=== PATIENT | female | born 1945 | race African-American/Black ===

== ENCOUNTER 2016-07-29 10:40 | Observation (INO) | payer OTHER ==
[2016-07-29 10:48] VITALS: BMI 24.2
--- NOTE | 2016-07-29 11:22 | PDOC ---
History of Present Illness - General History Source: Patient Exam Limitations: No Limitations - History of Present Illness Initial Comments: 07/29/16 11:35 The patient is a 69 year old female, with a significant past medical history of CAD, [place] (1982), hypertension, and hyperlipidemia, who presents to the emergency department complaining of left arm pain for approximately 4 days. The patient reports her pain radiates into her left shoulder and left upper back. Patient reports her pain is constant and exacerbated with exertion. She denies any associated chest pain, shortness of breath, diaphoresis, palpitations, numbness , or tingling. The patient reports she recently moved from [place] and has not been able to follow-up with her PCP Dr. Holly. Patient admits she is not compliant with some of her medications, because she has run out of them. Patient denies any history of PE or DVT. The patient denies any recent travel or sick contacts Allergies: None reported. Past Surgical History: Hysterectomy Social History: Former smoker. Denies alcohol or drug use. PCP: Dr. Mayda Holly <Miriam Pride - Last Filed: 07/29/16 13:05> <Kirsten Kelley - Last Filed: 07/29/16 15:59> - General Chief Complaint: Pain Stated Complaint: LT ARM/NECK PAIN Time Seen by Provider: 07/29/16 10:54 Past History <Miriam Pride - Last Filed: 07/29/16 13:05> - Past Medical History HTN: Yes - Psycho/Social/Smoking Cessation Hx Suicidal Ideation: No Smoking History: Former smoker Have you smoked in the past 12 months: No Information on smoking cessation initiated: No <Kirsten Kelley - Last Filed: 07/29/16 15:59> - Past Medical History Allergies/Adverse Reactions: Allergies Allergy/AdvReac Type Severity Reaction Status Date / Time No Known Allergies Allergy Verified 07/29/16 10:42 Home Medications: Ambulatory Orders Aspirin [ASA -] 81 mg PO DAILY 07/29/16 Atorvastatin Ca [Lipitor] 40 mg PO HS 07/29/16 Furosemide [Lasix] 20 mg PO DAILY 07/29/16 Lisinopril/Hydrochlorothiazide [Lisinopril-Hctz 20-12.5 mg Tab] DAILY 07/29/16 Metoprolol Succinate [Toprol Xl -] 100 mg PO BID 07/29/16 Nifedipine ER [Procardia Xl -] 90 mg PO DAILY 07/29/16 Review of Systems - Review of Systems Able to Perform ROS?: Yes Comments:: 07/29/16 11:35 GENERAL/CONSTITUTIONAL: No fever or chills. No weakness. HEAD, EYES, EARS, NOSE AND THROAT: No change in vision. No ear pain or discharge. No sore throat. CARDIOVASCULAR: No chest pain or shortness of breath. RESPIRATORY: No cough, wheezing, or hemoptysis. GASTROINTESTINAL: No nausea, vomiting, diarrhea or constipation. GENITOURINARY: No dysuria, frequency, or change in urination. MUSCULOSKELETAL: Yes: left arm/shoulder/upper back pain. No other joint or muscle swelling or pain. No neck pain. SKIN: No rash NEUROLOGIC: No headache, vertigo, loss of consciousness, or change in strength/ sensation. ENDOCRINE: No increased thirst. No abnormal weight change. HEMATOLOGIC/LYMPHATIC: No anemia, easy bleeding, or history of blood clots. ALLERGIC/IMMUNOLOGIC: No hives or skin allergy. <Miriam Pride - Last Filed: 07/29/16 13:05> *Physical Exam - Vital Signs Last Vital Signs Temp Pulse Resp BP Pulse Ox 98.3 F 71 19 199/94 96 07/29/16 10:42 07/29/16 10:42 07/29/16 10:42 07/29/16 10:42 07/29/16 10:42 - Physical Exam Comments: 07/29/16 11:36 GENERAL: Awake, alert, and fully oriented, in no acute distress HEAD: No signs of trauma EYES: PERRLA, EOMI, sclera anicteric, conjunctiva clear ENT: Auricles normal inspection, hearing grossly normal, nares patent. Moist mucosa NECK: Normal ROM, supple, no lymphadenopathy, JVD, or masses LUNGS: Breath sounds equal, clear to auscultation bilaterally. No wheezes, and no crackles HEART: Regular rate and rhythm, normal S1 and S2, no murmurs, rubs or gallops ABDOMEN: Soft, nontender, normoactive bowel sounds. No guarding, no rebound. No masses EXTREMITIES: Bilateral lower extremity nonpitting edema. Normal range of motion. No clubbing or cyanosis. No cords, erythema, or tenderness. DP/PT pulses 2+ and symmetric. NEUROLOGICAL: Moves all extremities. Normal speech, normal gait SKIN: Warm, Dry, normal turgor, no rashes or lesions noted. <Miriam Pride - Last Filed: 07/29/16 13:05> - Vital Signs Last Vital Signs Temp Pulse Resp BP Pulse Ox 98.3 F 71 19 199/94 96 07/29/16 10:42 07/29/16 10:42 07/29/16 10:42 07/29/16 10:42 07/29/16 10:42 <Kirsten Kelley - Last Filed: 07/29/16 15:59> Heart Score/ECG Review - ECG Intrepretation Rhythm: Regular Rhythm Comment:: 07/29/16 12:01 65 bpm, no st elevation or depressionl. . no cmparison - ECG Impressions Normal ECG: Yes Non-specific ST Elevation: No Ischemic Changes: No Bradycardia: Yes (repeat ekg sinus bradycardia 54, no st elevation or depression.) <Kirsten Kelley - Last Filed: 07/29/16 15:59> ED Treatment Course - LABORATORY CBC & Chemistry Diagram: 07/29/16 12:15 07/29/16 12:15 - RADIOLOGY Radiograph Interpretation: 07/29/16 13:05 EXAM: CXR INTERPRETED BY: Dr. Woodard REVIEWED BY: Dr. Kelley IMPRESSION: No acute pathology <Miriam Pride - Last Filed: 07/29/16 13:05> - LABORATORY CBC & Chemistry Diagram: 07/29/16 12:15 07/29/16 12:15 <Kirsten Kelley - Last Filed: 07/29/16 15:59> Medical Decision Making - Medical Decision Making 07/29/16 11:14 69 yo F with h/o HTN HLD, CAD prior [place], no stents here with /co left shoulder arm pain. no mod factors, occ worse with light activity. no assoc sob n/v mild bilat leg swelling. ran out of meds two weeks ago, states hasn't been able to see for refill to having just moved to [place], too far. no f/c no other complaints. no h/o pe or dvt. no numnbess or tinling no . on exam normal RRR no m//r/g. lungs clear. abd soft nontender old hysterectomy scar. ext mild nonpitting edema. 2+ symmetric pulses ext. MDM differential msk pin, shoulder arthritis, infection, atypical angina. plan ekg cxr labs trop aspirin already taken today. brody admit for cardiac rule out. 07/29/16 11:28 69 07/29/16 14:23 d/w Matilde, will admit to observation for cardiac rule out. tried to call pt pcp dr. Chris Whitlock, Data [phone] office closed untiol august 01. admit to obs dr. Harris <Kirsten Kelley - Last Filed: 07/29/16 15:59> *DC/Admit/Observation/Transfer - Attestations Scribe Attestion: 07/29/16 11:36 Documentation prepared by Miriam Pride, acting as medical photographer for Kirsten Kelley MD. <Miriam Pride - Last Filed: 07/29/16 13:05> - Discharge Dispostion Admit: Yes <Kirsten Kelley - Last Filed: 07/29/16 15:59> Diagnosis at time of Disposition: Atypical angina - Referrals
[2016-07-29] MEDS ORDERED: ASPIRIN 81 MG CHEWABLE TABLETS PO ONE (11:29)
[2016-07-29] MEDS ORDERED: ASPIRIN 81 MG CHEWABLE TABLETS ONE (12:06)
[2016-07-29 12:27] LABS: BASOPHIL 1.5 % (0-2.0); EOSINOPHIL 1.5 % (0-4.5); MCHC 32.9 g/dl (32.0-36.0); MEAN CELL VOLUME 94.4 fl (80-96); MEAN PLT VOLUME 10.7 fl (7.5-11.1); NEUTROPHILS 60.3 % (42.8-82.8); PLATELET COUNT 175 K/MM3 (134-434); RDW 12.8 % (11.6-15.6); WHITE BLOOD COUNT 8.1 K/mm3 (4.0-10.0)
[2016-07-29 12:39] LABS: INR 1.13 (0.82-1.09); PROTHROMBIN TIME (PATIENT) 12.5 SEC (9.98-11.88)
[2016-07-29 13:21] LABS: ANION GAP 7 (8-16); BILIRUBIN,TOTAL 0.4 mg/dL (0.2-1.0); CALCIUM 9.5 mg/dL (8.5-10.1); CO2 34 mmol/L (21-32); GLUCOSE,RANDOM 96 mg/dL (74-106); MAGNESIUM 2.3 mg/dL (1.8-2.4); SGOT/AST 12 U/L (15-37); SGPT/ALT 16 U/L (12-78)
[2016-07-29 13:24] LABS: ALK PHOS 163 U/L (45-117); TROPONIN I < 0.02 ng/ml (0.00-0.05)
--- NOTE | 2016-07-29 14:17 | HP ---
CHIEF COMPLAINT: PCP: HISTORY OF PRESENT ILLNESS: The patient is a 69 year old female, with a significant past medical history of CAD, [place] (1982), hypertension, and hyperlipidemia, who presents to the emergency department complaining of left arm pain for approximately 4 days. The patient reports her pain radiates into her left shoulder and left upper back. Patient reports her pain is constant and exacerbated with exertion. She denies any associated chest pain, shortness of breath, diaphoresis, palpitations, numbness , or tingling. The patient reports she recently moved from [place] and has not been able to follow-up with her PCP Dr. Holly. Patient admits she is not compliant with some of her medications, because she has run out of them. Patient denies any history of PE or DVT. The patient denies any recent travel or sick contacts Allergies: None reported. Past Surgical History: Hysterectomy Social History: Former smoker. Denies alcohol or drug use. PCP: Dr. Mayda Holly Recent Travel: Social History: Smoking: former Alcohol: denies Drugs: denes Family History: Allergies No Known Allergies Allergy (Verified 07/29/16 10:42) HOME MEDICATIONS: REVIEW OF SYSTEMS CONSTITUTIONAL: Absent: fever, chills, diaphoresis, generalized weakness, malaise, loss of appetite, weight change HEENT: Absent: rhinorrhea, nasal congestion, throat pain, throat swelling, difficulty swallowing, mouth swelling, ear pain, eye pain, visual changes CARDIOVASCULAR: Absent: chest pain, syncope, palpitations, irregular heart rate, lightheadedness , peripheral edema RESPIRATORY: Absent: cough, shortness of breath, dyspnea with exertion, orthopnea, wheezing, stridor, hemoptysis GASTROINTESTINAL: Absent: abdominal pain, abdominal distension, nausea, vomiting, diarrhea, constipation, melena, hematochezia GENITOURINARY: Absent: dysuria, frequency, urgency, hesitancy, hematuria, flank pain, genital pain MUSCULOSKELETAL: Absent: myalgia, arthralgia, joint swelling, back pain, neck pain SKIN: Absent: rash, itching, pallor HEMATOLOGIC/IMMUNOLOGIC: Absent: easy bleeding, easy bruising, lymphadenopathy, frequent infections ENDOCRINE: Absent: unexplained weight gain, unexplained weight loss, heat intolerance, cold intolerance NEUROLOGIC: Absent: headache, focal weakness or paresthesias, dizziness, unsteady gait, seizure, mental status changes, bladder or bowel incontinence PSYCHIATRIC: Absent: anxiety, depression, suicidal or homicidal ideation, hallucinations. PHYSICAL EXAMINATION Vital Signs - 24 hr 07/29/16 10:42 Temperature 98.3 F Pulse Rate 71 Respiratory 19 Rate Blood Pressure 199/94 O2 Sat by Pulse 96 Oximetry (%) GENERAL: Awake, alert, and fully oriented, in no acute distress. HEAD: Normal with no signs of trauma. EYES: Pupils equal, round and reactive to light, extraocular movements intact, sclera anicteric, conjunctiva clear. No lid lag. EARS, NOSE, THROAT: Ears normal, nares patent, oropharynx clear without exudates. Moist mucous membranes. NECK: Normal range of motion, supple without lymphadenopathy, JVD, or masses. LUNGS: Breath sounds equal, clear to auscultation bilaterally. No wheezes, and no crackles. No accessory muscle use. HEART: Regular rate and rhythm, normal S1 and S2 without murmur, rub or gallop. ABDOMEN: Soft, nontender, not distended, normoactive bowel sounds, no guarding, no rebound, no masses. No hepatomegaly or splenomegaly. MUSCULOSKELETAL: Normal range of motion at all joints. No bony deformities or tenderness. No CVA tenderness. UPPER EXTREMITIES: 2+ pulses, warm, well-perfused. No cyanosis. No clubbing. No peripheral edema. LOWER EXTREMITIES: 2+ pulses, warm, well-perfused. No calf tenderness. No peripheral edema. NEUROLOGICAL: Cranial nerves II-XII intact. Normal speech. Normal gait. PSYCHIATRIC: Cooperative. Good eye contact. Appropriate mood and affect. SKIN: Warm, dry, normal turgor, no rashes or lesions noted, normal capillary refill. Laboratory Results - last 24 hr 07/29/16 07/29/16 07/29/16 12:15 12:15 12:15 WBC 8.1 RBC 4.31 Hgb 13.4 Hct 40.7 MCV 94.4 MCHC 32.9 RDW 12.8 Plt Count 175 MPV 10.7 Neutrophils % 60.3 Lymphocytes % 30.1 Monocytes % 6.6 Eosinophils % 1.5 Basophils % 1.5 INR 1.13 Sodium 144 Potassium 3.6 Chloride 103 Carbon Dioxide 34 H Anion Gap 7 L BUN 23 H Creatinine 1.0 Creat Clearance w eGFR 54.66 Random Glucose 96 Calcium 9.5 Magnesium 2.3 Total Bilirubin 0.4 AST 12 L ALT 16 Alkaline Phosphatase 163 H Creatine Kinase 64 Troponin I < 0.02 Total Protein 8.0 Albumin 4.0 ASSESSMENT/PLAN: This 69 yr old female with c/o left shoulder to back pain that began several days ago. She has been off her meds for several weeks and now developed ? chest pain vs shoulder pain. 1. Left shoulder pain and radiating to left side of back -CXR negative -Left shoulder xray ordered -tylenol ordered for pain 2. Chest pain? vs Shoulder pain? -first cardiac trops neg, 2 more sets ordered -Echo ordered -consult for cards placed -ED Dr. Kelley called pt PCP for information regarding meds however PCP away. -Pt denies any past cardiac work ups -son brought med list, ordered and started. -monitor blood pressure 3. HTN -restarted meds she's been off of for 2 weeks 4. HLD -restarted meds 5. Admit tele obs Visit type - Emergency Visit Emergency Visit: Yes Care time: The patient presented to the Emergency Department on the above date and was hospitalized for further evaluation of their emergent condition. - New Patient This patient is new to me today: Yes Date on this admission: 07/29/16 - Critical Care Critical Care patient: No Heart Score/ECG Review - History History: Moderately suspicious - Electrocardiogram EKG: Normal - Age Age: >/= 65 - Risk Factors Risk Factors Heart Score: Yes Hx Hypercholesterolemia, Yes Hx Hypertension Based on the list above the patient has:: >/=3 risk factors or Hx atherosclerotic disease - Troponin Troponin: </= normal limit - Score Heart Score - Total: 5
[2016-07-29] MEDS ORDERED: ACETAMINOPHEN 500 MG TABLET (FP) PO ONE (14:58)
[2016-07-29] MEDS ORDERED: PATIENT'S OWN MEDICATION (NON-FORMULARY) (Lisinopril/Hydrochlorothiazide [Lisinopril-Hctz PO SCH (15:00)
[2016-07-29] MEDS ORDERED: ACETAMINOPHEN 325 MG TABLET (FP) ONE (15:26)
[2016-07-29] MEDS ORDERED: FUROSEMIDE 40 MG TABLET (FP) ONE (15:26)
[2016-07-29] MEDS ORDERED: HYDROCHLOROTHIAZIDE 25 MG TABLET (FP) ONE (15:28)
[2016-07-29] MEDS ORDERED: LISINOPRIL 20 MG TABLET (FP) ONE (15:28)
[2016-07-29] MEDS: FUROSEMIDE 20 MG TABLET (FP) PO SCH (15:49)
[2016-07-29] MEDS: HYDROCHLOROTHIAZIDE 12.5 MG CAPSULE (FP) PO SCH (15:50)
[2016-07-29] MEDS: NIFEdipine E.R. 90 MG TABLET (FP) PO SCH (15:50)
[2016-07-29] MEDS: LISINOPRIL 20 MG TABLET (FP) PO SCH (15:50)
--- NOTE | 2016-07-29 16:26 | CON.CARD ---
Consult Consult Specialty:: Cardiology Referred by:: Hospitalist Medicine Reason for Consultation:: Hypertensive cardiomyopathy - History of Present Illness Chief Complaint: Left arm pain History of Present Illness: The patient is a 69 year old female, with a significant past medical history of CAD s/p [place], PTCA (1982), hypertension, and hyperlipidemia, who presented to the emergency department complaining of left arm pain for approximately 4 days exacerbated with certain positional changes and improving with Tylenol. She reports chronic dyspnea on exertion with climbing inclines over last several months, but denies any chest pain, palpitations, near or true syncope, orthopnea , PND or LE edema. Patient ran out of medications 2 weeks ago, BP elevated in ED. Allergies: None reported. Past Surgical History: Hysterectomy Social History: Former smoker. Denies alcohol or drug use. PCP: Dr. Mayda Holly - History Source History Provided By: Patient Limitations to Obtaining History: No Limitations - Past Medical History Cardio/Vascular: Yes: CAD, HTN, [place] - Smoking History Smoking history: Former smoker Have you smoked in the past 12 months: No Home Medications - Allergies Allergies/Adverse Reactions: Allergies Allergy/AdvReac Type Severity Reaction Status Date / Time No Known Allergies Allergy Verified 07/29/16 10:42 - Home Medications Home Medications: Ambulatory Orders Aspirin [ASA -] 81 mg PO DAILY 07/29/16 Atorvastatin Ca [Lipitor] 40 mg PO HS 07/29/16 Furosemide [Lasix] 20 mg PO DAILY 07/29/16 Lisinopril/Hydrochlorothiazide [Lisinopril-Hctz 20-12.5 mg Tab] DAILY 07/29/16 Metoprolol Succinate [Toprol Xl -] 100 mg PO BID 07/29/16 Nifedipine ER [Procardia Xl -] 90 mg PO DAILY 07/29/16 Review of Systems - Review of Systems Respiratory: reports: SOB on Exertion Vital Signs: Vital Signs Temperature 98.3 F 07/29/16 10:42 Pulse Rate 71 07/29/16 10:42 Respiratory Rate 19 07/29/16 10:42 Blood Pressure 199/94 07/29/16 10:42 O2 Sat by Pulse Oximetry (%) 96 07/29/16 10:42 Constitutional: Yes: No Distress, Calm Neck: Yes: Supple Respiratory: Yes: Regular, CTA Bilaterally Gastrointestinal: Yes: Normal Bowel Sounds, Soft Cardiovascular: Yes: Regular Rate and Rhythm JVD: No Carotid Bruit: No Heart Sounds: Yes: S1, S2 Murmur: Yes: Systolic Murmur, Grade 1 Edema: No - Other Data Labs, Other Data: INR, PTT INR 1.13 (0.82-1.09) 07/29/16 12:15 Imaging - Results Chest X-ray: Report Reviewed (NAD) Problem List - Problems (1) Atypical chest pain Code(s): R07.89 - OTHER CHEST PAIN (2) Hypertensive cardiomyopathy Code(s): I11.9 - HYPERTENSIVE HEART DISEASE WITHOUT HEART FAILURE I43 - CARDIOMYOPATHY IN DISEASES CLASSIFIED ELSEWHERE Qualifiers: Heart failure presence: without heart failure Qualified Code(s): I11.9 - Hypertensive heart disease without heart failure; I43 - Cardiomyopathy in diseases classified elsewhere (3) Hyperlipidemia Code(s): E78.5 - HYPERLIPIDEMIA, UNSPECIFIED Qualifiers: Hyperlipidemia type: pure hypercholesterolemia Qualified Code(s): E78.00 - Pure hypercholesterolemia, unspecified; E78.0 - Pure hypercholesterolemia (4) Coronary artery disease Code(s): I25.10 - ATHSCL HEART DISEASE OF [place] CORONARY ARTERY W/O ANG PCTRS (5) Old myocardial infarct Code(s): I25.2 - OLD MYOCARDIAL INFARCTION (6) H/O percutaneous transluminal coronary angioplasty Code(s): Z98.61 - CORONARY ANGIOPLASTY STATUS Assessment/Plan 07/29/2016 Echo: Normal LV size and fxn, mild TR, tr-mild MR 1. Shoulder pain/atypical chest pain musculoskeletal in etiology 2. CAD h/o [place], PTCA 3. HTN/HCVD 4. Hyperlipidemia P:1. Ruling out for [place], check TSH, lipid panel 2. Resume ASA 81 qd, Lipitor 40 qhs, Zesteretic 20/12.5 qd, Toprol XL 100 bid, Procardia XL 90 qd and Lasix 20 qd 3. Eventual stress testing to r/o CAD, may be performed as outpatient 4. Thank you for consultative opportunity
[2016-07-29] MEDS: METOPROLOL SUCCINATE 100 MG TAB.SR.24H (FP) PO SCH (21:26)
[2016-07-29] MEDS: morphine CARPU-JECT 2 MG/1 ML DISP.SYRIN IVPUSH PRN (21:26)
[2016-07-29] MEDS ORDERED: ATORVASTATIN CA 40 MG TABLET (FP) PO SCH (22:00)
[2016-07-29 22:11] LABS: TROPONIN I < 0.02 ng/ml (0.00-0.05)
[2016-07-30] MEDS: morphine CARPU-JECT 2 MG/1 ML DISP.SYRIN IVPUSH PRN ×2 (04:07→10:40)
[2016-07-30] MEDS: ACETAMINOPHEN 325 MG TABLET (FP) PO PRN ×2 (07:52→20:16)
[2016-07-30 08:25] LABS: BASOPHIL 0.7 % (0-2.0); EOSINOPHIL 1.9 % (0-4.5); MCHC 32.6 g/dl (32.0-36.0); MEAN CELL VOLUME 95.1 fl (80-96); MEAN PLT VOLUME 11.4 fl (7.5-11.1); NEUTROPHILS 56.4 % (42.8-82.8); PLATELET COUNT 173 K/MM3 (134-434); RDW 12.8 % (11.6-15.6); WHITE BLOOD COUNT 8.7 K/mm3 (4.0-10.0)
[2016-07-30 08:43] LABS: CHOLESTEROL 186 mg/dL (50-200); LDL CHOLESTEROL (ONLY SJRH) 94 mg/dL (5-100)
[2016-07-30 08:50] LABS: INR 1.18 (0.82-1.09)
[2016-07-30 08:55] LABS: THYROID STIMULATING HORMONE 1.18 uIU/ml (0.358-3.74); TROPONIN I < 0.02 ng/ml (0.00-0.05)
[2016-07-30 09:00] LABS: ALBUMIN 3.7 g/dl (3.4-5.0); BILIRUBIN,TOTAL 0.6 mg/dL (0.2-1.0); CALCIUM 9.3 mg/dL (8.5-10.1); COCKROFT - GAULT 53.8135; TOT PROT 7.7 g/dl (6.4-8.2)
[2016-07-30] MEDS ORDERED: POTASSIUM CHLORIDE TABS 20 MEQ TABLET.ER (FP) PO ONE (09:31)
[2016-07-30] MEDS ORDERED: HYDROCHLOROTHIAZIDE 12.5 MG CAPSULE (FP) PO SCH (10:00)
[2016-07-30] MEDS ORDERED: ASPIRIN 81 MG CHEWABLE TABLETS PO SCH (10:00)
[2016-07-30] MEDS ORDERED: LISINOPRIL 20 MG TABLET (FP) PO SCH (10:00)
[2016-07-30] MEDS: METOPROLOL SUCCINATE 100 MG TAB.SR.24H (FP) PO SCH (10:33)
[2016-07-30] MEDS: HYDROCHLOROTHIAZIDE 12.5 MG CAPSULE (FP) PO SCH (10:33)
[2016-07-30] MEDS: FUROSEMIDE 20 MG TABLET (FP) PO SCH (10:33)
[2016-07-30] MEDS: LISINOPRIL 20 MG TABLET (FP) PO SCH (10:33)
[2016-07-30] MEDS: NIFEdipine E.R. 90 MG TABLET (FP) PO SCH (10:33)
[2016-07-30 12:06] LABS: CALCIUM 9.5 mg/dL (8.5-10.1); COCKROFT - GAULT 44.846; CREATININE 1.2 mg/dL (0.55-1.02)
--- NOTE | 2016-07-30 14:58 | DS ---
Physical Examination Vital Signs: Vital Signs Temperature 98.6 F 07/30/16 14:00 Pulse Rate 61 07/30/16 14:00 Respiratory Rate 18 07/30/16 14:00 Blood Pressure 123/64 07/30/16 14:00 O2 Sat by Pulse Oximetry (%) 98 07/30/16 09:00 Findings/Remarks: GENERAL: Awake, alert, and fully oriented, in no acute distress. HEAD: Normal with no signs of trauma. LUNGS: Breath sounds equal, clear to auscultation bilaterally. No wheezes, and no crackles. No accessory muscle use. HEART: Regular rate and rhythm, normal S1 and S2 without murmur, rub or gallop. ABDOMEN: Soft, nontender, not distended, normoactive bowel sounds, no guarding, no rebound, no masses. No hepatomegaly or splenomegaly. Labs: CBC, BMP 07/30/16 05:40 07/30/16 10:35 Discharge Summary Reason For Visit: ATYPICAL ANGINA Current Active Problems Atypical angina (Acute) Atypical chest pain (Acute) Coronary artery disease (Acute) H/O percutaneous transluminal coronary angioplasty (Acute) Hyperlipidemia (Acute) Hypertensive cardiomyopathy (Acute) Old myocardial infarct (Acute) Hospital Course: This is a 71 year old female with PMHx of CAD, [place] (1982), HTN, hyperlipidemia who presented to the ED with left arm pain x4 days. She reports her pain radiates into her left shoulder and left upper back. The patient reports her pain worsens with exertion. She denies any chest pain, shortness of breath, diaphoresis, palpitations, numbness or tingling in her hands. She reports non- compliance with medications. Plan: 1) Left shoulder pain: - R/o ACS, trops x3 negative - TSH wnl - Lipid panel reviewed - Chest X-ray with no acute pathology - ECHO LV systolic function is grossly normal. Mild mitral valve thickening, no mitral valve stenosis. Trace to mild MR. Mild TR. Mod aortic sclerosis. - Resume ASA 2) Hyperlipidemia: - Continue Lipitor 3) Hypertensive cardiomyopathy, CAD - Continue Zestoretic - Continue Toprol XL - Continue Procardia - Continue Lasix This discharge took 35 minutes to complete. Condition: Improved - Instructions Diet, Activity, Other Instructions: Please return to the ED with new, persistent, or worsening symptoms. Please follow-up with providers as indicated. Referrals: Sanya Garcia MD [Staff Physician] - (Please follow-up with cardiology within 2 -3 days for further evaluation and to schedule an outpatient stress test) Malachi Lancaster MD [Staff Physician] - 1 Week () Disposition: HOME - Home Medications Comprehensive Discharge Medication List: Ambulatory Orders Aspirin [ASA -] 81 mg PO DAILY 07/29/16 Atorvastatin Ca [Lipitor] 40 mg PO HS 07/29/16 Furosemide [Lasix] 20 mg PO DAILY 07/29/16 Lisinopril/Hydrochlorothiazide [Lisinopril-Hctz 20-12.5 mg Tab] DAILY 07/29/16 Metoprolol Succinate [Toprol XL -] 100 mg PO BID 07/29/16 Nifedipine ER [Procardia XL -] 90 mg PO DAILY 07/29/16 Acetaminophen [Tylenol .Regular Strength -] 650 mg PO Q4H PRN #0 tablet This patient is new to me today: Yes Date on this admission: 07/30/16 Emergency Visit: Yes ED Registration Date: 07/29/16 Care time: The patient presented to the Emergency Department on the above date and was hospitalized for further evaluation of their emergent condition. Critical Care patient: No - Discharge Referral Referred to [facility].C[facility] Yes Physician Referral: Malachi Grayson MD ([facility])
[2016-07-30 19:02] VITALS: BP 103/42; PULSE 64; TEMP 98.1
--- NOTE | 2016-08-01 12:54 | EKG ---
Test Reason : Blood Pressure : / mmHG Vent. Rate : 054 BPM Atrial Rate : 054 BPM P-R Int : 166 ms QRS Dur : 102 ms QT Int : 460 ms P-R-T Axes : 048 005 023 degrees QTc Int : 436 ms SINUS BRADYCARDIA INFERIOR INFARCT (CITED ON OR BEFORE 29-JUL-2016) CANNOT RULE OUT ANTERIOR INFARCT , AGE UNDETERMINED ABNORMAL ECG WHEN COMPARED WITH ECG OF 29-JUL-2016 11:01, NO SIGNIFICANT CHANGE WAS FOUND Confirmed by SAUD LYLES MD ([id number]) on 08/01/2016 12:54:04 PM Referred By: Confirmed By:SAUD LYLES MD
--- NOTE | 2016-08-01 12:56 | EKG ---
Test Reason : Blood Pressure : / mmHG Vent. Rate : 065 BPM Atrial Rate : 065 BPM P-R Int : 172 ms QRS Dur : 108 ms QT Int : 428 ms P-R-T Axes : 056 010 032 degrees QTc Int : 445 ms NORMAL SINUS RHYTHM CANNOT RULE OUT INFERIOR INFARCT , AGE UNDETERMINED ABNORMAL ECG NO PREVIOUS ECGS AVAILABLE Confirmed by TRUPTI FRIAS, SAUD ([id number]) on 08/01/2016 12:56:18 PM Referred By: B Confirmed By:SAUD LYLES MD
== END 2016-07-30 20:29 | disposition home or self-care (01) ==
LOC: JER 10:40 → EDBD 14:26 → JERBED 14:26 → J4W 17:00
PROVIDERS: ADMIT Internal Medicine; ATTEND Registered Nurse
PROC: 3E033NZ Introduction of Analgesics, Hypnotics, Sedatives into Peripheral Vein, Percutaneous Approach (ICD-10-PCS; principal; 2016-07-29)
DX: I20.9 Angina pectoris, unspecified (principal); R07.89 Other chest pain; I11.9 Hypertensive heart disease without heart failure; I25.10 Atherosclerotic heart disease of native coronary artery without angina pectoris; I25.2 Old myocardial infarction; E78.5 Hyperlipidemia, unspecified; Z87.891 Personal history of nicotine dependence; Z79.82 Long term (current) use of aspirin; Z98.61 Coronary angioplasty status
CPT/HCPCS: 36415; 71020-TC; 74174-TC; 80048; 80053; 80061; 82550; 83721; 83735; 84443; 84484; 85025; 85610; 93005; 93010; 93306-TC; 99284-25; G0378

== ENCOUNTER 2016-09-06 10:18 | Emergency (ER) | payer OTHER ==
[2016-09-06 10:25] VITALS: BP 184/92; PULSE 105; TEMP 98.3; BMI 34.5
[2016-09-06] MEDS ORDERED: INDOMETHACIN 50 MG CAPSULE PO ONE (11:26)
[2016-09-06] MEDS ORDERED: COLCHICINE 0.6 MG TABLET (FP) PO ONE (11:26)
--- NOTE | 2016-09-06 11:29 | PDOC ---
History of Present Illness - General Chief Complaint: Pain Stated Complaint: TOE PAIN Time Seen by Provider: 09/06/16 11:21 History Source: Patient Exam Limitations: No Limitations - History of Present Illness Initial Comments: 09/06/16 11:23 71 yr female with history of gout presents with c/o toe pain left great toe for 3 days. pt denies trauma denies fever chill sno abd pain or nvd. Pt does not have any meds for pain. Past History - Past Medical History Allergies/Adverse Reactions: Allergies Allergy/AdvReac Type Severity Reaction Status Date / Time No Known Allergies Allergy Verified 09/06/16 10:19 Home Medications: Ambulatory Orders Aspirin [ASA -] 81 mg PO DAILY 07/29/16 Atorvastatin Ca [Lipitor] 40 mg PO HS 07/29/16 Furosemide [Lasix] 20 mg PO DAILY 07/29/16 Metoprolol Succinate [Toprol XL -] 100 mg PO BID 07/29/16 Nifedipine ER [Procardia XL -] 90 mg PO DAILY 07/29/16 Acetaminophen [Tylenol .Regular Strength -] 650 mg PO Q4H PRN #0 tablet Aspirin [ASA -] 81 mg PO DAILY #30 tab.chew 07/30/16 Atorvastatin Ca [Lipitor] 40 mg PO HS #30 tablet 07/30/16 Furosemide [Lasix -] 20 mg PO DAILY #30 tablet 07/30/16 Hydrochlorothiazide [Hctz -] 12.5 mg PO DAILY #30 cap 07/30/16 Lisinopril [Prinivil] 20 mg PO DAILY #30 tablet 07/30/16 Lisinopril/Hydrochlorothiazide [Lisinopril-Hctz 20-12.5 mg Tab] 1 tab PO DAILY # 30 tab 07/30/16 Metoprolol Succinate [Toprol XL -] 100 mg PO BID #60 tab 07/30/16 Nifedipine ER [Procardia XL -] 90 mg PO DAILY #30 tab 07/30/16 Indomethacin [Indocin -] 50 mg PO TID PRN #21 capsule 09/06/16 Cardiac Disorders: Yes ([place] , CAD) HTN: Yes Hypercholesterolemia: Yes Other medical history: GOUT - Psycho/Social/Smoking Cessation Hx Anxiety: No Suicidal Ideation: No Smoking History: Former smoker Have you smoked in the past 12 months: No Information on smoking cessation initiated: No Hx Alcohol Use: No Drug/Substance Use Hx: No Substance Use Type: None Hx Substance Use Treatment: No *Physical Exam - Vital Signs Last Vital Signs Temp Pulse Resp BP Pulse Ox 98.3 F 105 H 18 184/92 100 09/06/16 10:21 09/06/16 10:21 09/06/16 10:21 09/06/16 10:21 09/06/16 10:21 - Physical Exam General Appearance: Yes: Nourished, Appropriately Dressed HEENT: positive: EOMI, PRASHANTH Respiratory/Chest: positive: Lungs Clear, Normal Breath Sounds Cardiovascular: positive: Regular Rhythm, Regular Rate Extremity: positive: Normal Capillary Refill, Tender (lateral left great toe, warm and red ) Integumentary: positive: Normal Color, Dry, Warm Neurologic: positive: Fully Oriented, Alert, Normal Mood/Affect, Normal Response , Motor Strength 5/5 Medical Decision Making - Medical Decision Making 09/06/16 11:29 cc: left great toe pain history of gout for 3 days no trauma no fever no chills no abd pain *DC/Admit/Observation/Transfer Diagnosis at time of Disposition: Gout attack Qualifiers: Gout site: foot Gout etiology: unspecified cause Laterality: left Qualified Code(s): M10.9 - Gout, unspecified - Discharge Dispostion Disposition: HOME Condition at time of disposition: Good - Prescriptions Prescriptions: Indomethacin [Indocin -] 50 mg PO TID PRN #21 capsule PRN Reason: Pain - Referrals Referrals: Lior Silverman MD [Staff Physician] - - Patient Instructions Additional Instructions: take the indocin as prescribed for pain warm compresses to the area of pain use the hard sole shoe to help with ambulation follow with the orthopedist for follow up or your primary care doctor avoid alcohol, chocolate, red meat and seafood as this can worsen gout attacks
== END 2016-09-06 12:07 | disposition home or self-care (01) ==
LOC: JERFT 10:18
DX: M10.9 Gout, unspecified (principal); I10 Essential (primary) hypertension; E78.00 Pure hypercholesterolemia, unspecified; I25.2 Old myocardial infarction; I25.10 Atherosclerotic heart disease of native coronary artery without angina pectoris; Z87.891 Personal history of nicotine dependence
CPT/HCPCS: 73660-TC; 99281-25

== ENCOUNTER 2017-03-28 11:14 | Emergency (ER) | payer OTHER ==
[2017-03-28 11:18] VITALS: BP 161/101; PULSE 91; TEMP 98.2; BMI 29.8
--- NOTE | 2017-03-28 12:03 | PDOC ---
History of Present Illness - General Chief Complaint: Edema Stated Complaint: SWOLLEN LEGS/PAIN Time Seen by Provider: 03/28/17 11:34 - History of Present Illness Initial Comments: 03/28/17 14:16 Patient is a 71 year old female with a significant past medical history of CAD, [place] (1982), hypertension, and hyperlipidemia who presents to the ED with complaints of bilateral swelling and pain of her feet that began 3 days ago As per patient's aid, patient's left foot began to show signs of swelling this morning, prompting the patient to come into the ED for further evaluation. Patient states pain is localized in the base of her feet mostly in her first toe. She has been prescribed Meloxicam 15 mg for her gout but has run out of the medication and has taken tylenol for the pain with no relief. Patient reports experiencing an episode of gout multiple years ago, and states this episode feels similar. Denies chest pain, SOB. Denies fevers, chills. Denies nausea, vomiting. Denies numbness, change in sensation. Denies contact with sick individuals, out of state travelling. Denies any other symptoms. Allergies: None Social history: Former smoker (Last unknown). No alcohol. No illicit drugs. Surgical history: Hysterectomy PMD: Dr. Mayda Holly Past History - Past Medical History Allergies/Adverse Reactions: Allergies Allergy/AdvReac Type Severity Reaction Status Date / Time No Known Allergies Allergy Verified 03/28/17 11:18 Home Medications: Ambulatory Orders Aspirin [ASA -] 81 mg PO DAILY 07/29/16 Atorvastatin Ca [Lipitor] 40 mg PO HS 07/29/16 Metoprolol Succinate [Toprol XL -] 100 mg PO BID 07/29/16 Nifedipine ER [Procardia XL -] 90 mg PO DAILY 07/29/16 Furosemide [Lasix -] 20 mg PO DAILY #30 tablet 07/30/16 Hydrochlorothiazide [Hctz -] 12.5 mg PO DAILY #30 cap 07/30/16 Lisinopril [Prinivil] 20 mg PO DAILY #30 tablet 07/30/16 Lisinopril/Hydrochlorothiazide [Lisinopril-Hctz 20-12.5 mg Tab] 1 tab PO DAILY # 30 tab 07/30/16 Cardiac Disorders: Yes ([place] , CAD) COPD: No HTN: Yes Hypercholesterolemia: Yes Other medical history: gout - Suicide/Smoking/Psychosocial Hx Smoking History: Never smoked Have you smoked in the past 12 months: No Information on smoking cessation initiated: No Hx Alcohol Use: Yes (beers) Drug/Substance Use Hx: No Substance Use Type: None Hx Substance Use Treatment: No Review of Systems - Review of Systems Comments:: 03/28/17 14:16 GENERAL/CONSTITUTIONAL: No fever or chills. No weakness. HEAD, EYES, EARS, NOSE AND THROAT: No change in vision. No ear pain or discharge. No sore throat. GASTROINTESTINAL: No nausea, vomiting, diarrhea or constipation. GENITOURINARY: No dysuria, frequency, or change in urination. CARDIOVASCULAR: No chest pain or shortness of breath. RESPIRATORY: No cough, wheezing, or hemoptysis. MUSCULOSKELETAL: +Bilateral foot pain. +Bilateral foot swelling No neck or back pain. SKIN: No rash NEUROLOGIC: No headache, vertigo, loss of consciousness, or change in strength/ sensation. ENDOCRINE: No increased thirst. No abnormal weight change. HEMATOLOGIC/LYMPHATIC: No anemia, easy bleeding, or history of blood clots. ALLERGIC/IMMUNOLOGIC: No hives or skin allergy. *Physical Exam - Vital Signs Last Vital Signs Temp Pulse Resp BP Pulse Ox 98.2 F 91 H 18 161/101 100 03/28/17 11:16 03/28/17 11:16 03/28/17 11:16 03/28/17 11:16 03/28/17 11:16 - Physical Exam Comments: 03/28/17 14:16 GENERAL: Awake, alert, and fully oriented, in no acute distress HEAD: No signs of trauma EYES: PERRLA, EOMI, sclera anicteric, conjunctiva clear ENT: Auricles normal inspection, hearing grossly normal, nares patent, oropharynx clear without exudates. Moist mucosa NECK: Normal ROM, supple, no lymphadenopathy, JVD, or masses LUNGS: Breath sounds equal, clear to auscultation bilaterally. No wheezes, and no crackles HEART: Regular rate and rhythm, normal S1 and S2, no murmurs, rubs or gallops ABDOMEN: Soft, nontender, normoactive bowel sounds. No guarding, no rebound. No masses EXTREMITIES: +Mild edema of foot bilaterally. +Bilateral tenderness to palpation of the first metatarsal, left greater than right. Normal range of motion. No clubbing or cyanosis. No cords, erythema NEUROLOGICAL: Normal speech, cranial nerves intact, negative pronator drift, 5/ 5 strength in all 4 extremities, normal sensation to light touch in all 4 extremities, normal cerebellar exam, normal reflexes and tone SKIN: Warm, Dry, normal turgor, no rashes or lesions noted. Medical Decision Making - Medical Decision Making 03/28/17 13:16 71-year-old female presents with gout flare, similar to her previous gout flares. Patient reports she presented today she ran out of her gout medications. Vitals initially with hypertension to 106/101, however on my exam blood pressure was 142/78. No signs of infection, and patient denies any fevers or chills. Will give pain medication reassess. 03/28/17 14:17 Patient reports improvement in pain after indomethacin. She requests discharge at this time she has an appointment at 240p. Prescription for meloxicam sent to the patient's pharmacy as she states this is the medication that works best for her. I discussed the physical exam findings, ancillary test results and final diagnoses with the patient. I answered all of the patient's questions. The patient was satisfied with the care received and felt comfortable with the discharge plan and treatment plan. The patient will call their primary care physician within 24 hours to arrange follow-up and will return to the Emergency Department with any new, persistent or worsening symptoms. *DC/Admit/Observation/Transfer Diagnosis at time of Disposition: Gout attack - Discharge Dispostion Disposition: HOME Condition at time of disposition: Stable Admit: No - Referrals - Patient Instructions Printed Discharge Instructions: DI for Gout Additional Instructions: Follow-up with your primary care doctor within 1-2 days. Take your pain medications as prescribed. Return to the emergency department if you have any new, worsening or concerning symptoms. - Post Discharge Activity - Attestations Physician Attestion: 03/28/17 14:20 I, Dr. Prudence Lua MD, attest that this document has been prepared under my direction and personally reviewed by me in its entirety. I further attest, that it accurately reflects all work, treatment, procedures and medical decision -making performed by me.
[2017-03-28] MEDS ORDERED: INDOMETHACIN 50 MG CAPSULE PO ONE (12:42)
== END 2017-03-28 15:05 | disposition home or self-care (01) ==
LOC: JER 11:14
DX: M10.9 Gout, unspecified (principal); I25.10 Atherosclerotic heart disease of native coronary artery without angina pectoris; I10 Essential (primary) hypertension; I25.2 Old myocardial infarction; E78.5 Hyperlipidemia, unspecified
CPT/HCPCS: 99282-25

== ENCOUNTER 2017-04-17 11:31 | Inpatient (IN) | payer OTHER ==
--- NOTE | 2017-04-17 12:52 | PDOC ---
History of Present Illness - General History Source: Patient Exam Limitations: No Limitations - History of Present Illness Initial Comments: 04/17/17 13:01 The patient is a 71 year old female with history significant for gout, hypertension, hyperlipidemia brought in by EMS complaining of approximately 2 weeks of bilateral foot pain and swelling. She describes her foot pain as progressively worsening, sharp pain, consistent with her previous gout flare- ups. She now also complains of pain and swelling extending to her left knee. She states this morning she could not walk secondary to the severity of her pain , prompting her ED visit. On ED arrival, she is noted to be mildly febrile (99.3 ) and mildly tachycardic. The patient denies subjective fever or chills. She denies chest pain, shortness of breath, or wheezing. The patient was seen in the ED on 03/28/17, treated with indomethocin, and discharged with a prescription for Mobic. She states she has not been able to fill her prescription at the pharmacy. <Lynda Snell - Last Filed: 04/17/17 13:52> <Kamari Moscoso - Last Filed: 04/17/17 14:50> - General Chief Complaint: Pain Stated Complaint: GOUT/ PAIN Time Seen by Provider: 04/17/17 12:10 Past History <Lynda Snell - Last Filed: 04/17/17 13:52> - Past Medical History Cardiac Disorders: Yes ([place] , CAD) COPD: No DVT: No HTN: Yes Hypercholesterolemia: Yes Other medical history: GOUT - Suicide/Smoking/Psychosocial Hx Smoking History: Never smoked Have you smoked in the past 12 months: No Information on smoking cessation initiated: No Hx Alcohol Use: Yes (beers) Drug/Substance Use Hx: No Substance Use Type: None Hx Substance Use Treatment: No <Kamari Moscoso - Last Filed: 04/17/17 14:50> - Past Medical History Allergies/Adverse Reactions: Allergies Allergy/AdvReac Type Severity Reaction Status Date / Time No Known Allergies Allergy Verified 04/17/17 11:59 Home Medications: Ambulatory Orders Aspirin [ASA -] 81 mg PO DAILY 07/29/16 Atorvastatin Ca [Lipitor] 40 mg PO HS 07/29/16 Metoprolol Succinate [Toprol XL -] 100 mg PO BID 05/12/17 Nifedipine ER [Procardia XL -] 90 mg PO DAILY 07/29/16 Furosemide [Lasix -] 20 mg PO DAILY #30 tablet 07/30/16 Meloxicam [Mobic] 15 mg PO DAILY PRN #10 tablet 03/28/17 Lisinopril [Prinivil] 40 mg PO DAILY 04/17/17 Review of Systems - Review of Systems Constitutional: No: Chills, Fever Respiratory: No: Cough, Shortness of Breath Cardiac (ROS): No: Chest Pain Musculoskeletal: Yes: Joint Pain. No: Muscle Pain Integumentary: No: Rash Neurological: No: Headache All Other Systems: Reviewed and Negative <Kamari Moscoso - Last Filed: 04/17/17 14:50> *Physical Exam - Vital Signs Last Vital Signs Temp Pulse Resp BP Pulse Ox 99.3 F 103 H 18 147/97 100 04/17/17 11:59 04/17/17 11:59 04/17/17 11:59 04/17/17 11:59 04/17/17 11:59 - Physical Exam Comments: 04/17/17 13:17 GENERAL: The patient is awake, alert, and fully oriented, in no acute distress. HEAD: Normal with no signs of trauma. EYES: Pupils equal, round and reactive to light, extraocular movements intact, sclera anicteric, conjunctiva clear with no pallor. ENT: Ears normal, nares patent, oropharynx clear without exudates. Moist mucous membranes. NECK: Normal range of motion, supple without lymphadenopathy, JVD, or masses. LUNGS: Breath sounds equal, clear to auscultation bilaterally. No wheeze/ crackles. HEART: Regular rate and rhythm, normal S1 and S2 without murmur or rub. ABDOMEN: Soft/nontender/nondistended. BS wnl. No guarding or rebound. No palpable masses. No hepatosplenomegaly. EXTREMITIES: Left knee: +Soft tissue swelling, slightly warm to touch, no erythema. Full ROM. No joint effusion. Bilateral feet: +Bilateral 1st metatarsal tenderness to palpation, left greater than right. +Dorsal foot soft tissue swelling. NVID. NEUROLOGICAL: Cranial nerves II through XII grossly intact. Normal speech, normal gait. PSYCH: Normal mood, normal affect. SKIN: Warm, Dry, normal turgor, no rashes or lesions noted. <Lynda Snell - Last Filed: 04/17/17 13:52> - Vital Signs Last Vital Signs Temp Pulse Resp BP Pulse Ox 99.3 F 103 H 18 147/97 100 04/17/17 11:59 04/17/17 11:59 04/17/17 11:59 04/17/17 11:59 04/17/17 11:59 <Kamari Moscoso - Last Filed: 04/17/17 14:50> ED Treatment Course - LABORATORY CBC & Chemistry Diagram: 04/17/17 13:10 04/17/17 13:10 <Lynda Snell - Last Filed: 04/17/17 13:52> - LABORATORY CBC & Chemistry Diagram: 04/17/17 13:10 04/17/17 13:10 <Kamari Moscoso - Last Filed: 04/17/17 14:50> Medical Decision Making - Medical Decision Making 04/17/17 13:38 A portion of this note was documented by scribe services under my direction. I have reviewed the details of the note, within reason, and agree with the documentation with the following case summary and management plan written by me. 71-year-old female with history of gout presents for persistent bilateral foot pain for 2 weeks. Patient was seen here on 03/28 with similar bilateral great toe pain, treated successfully at that time with indomethacin with plans to discharge on meloxicam, which has helped the patient's symptoms in the past, but the patient states the pharmacy did not have the prescription. She has not been taking any medication since then, states her pain has been constant and worsened over the last 24 hours, now unable to bear weight because of pain. No falls, no fevers or chills, some soft tissue swelling but no redness. Afebrile. Well-appearing seated in wheelchair Slight swelling to left knee without joint effusion or focal tenderness, full range of motion. Bilateral tenderness at the first metatarsal/phalangeal joint with some soft tissue swelling and warmth, no cellulitis or ankle swelling/effusion, full range of motion at ankle. 71-year-old female with persistent/worsening gout exacerbation, no evidence of superimposed cellulitis. No history of trauma, afebrile and well-appearing. Check basic labs Pain control Reassess, trial of ambulation 04/17/17 14:13 wbc 12.2, elevated CRP and Uric acid. 04/17/17 14:49 still unable to bear weight after pain meds, lives alone and cares for self. given inability to ambulate in setting of b/l gout, will need observation for pain management. Also with slightly elevated Cr. Accepted for obs med/surg by Dr. Beach, signout given to Dr. Bullard. <Kamari Moscoso - Last Filed: 04/17/17 14:50> *DC/Admit/Observation/Transfer - Attestations Scribe Attestion: 04/17/17 13:08 Documentation prepared by Lynda Snell, acting as medical billing clerk for Kamari Moscoso MD. <Lynda Snell - Last Filed: 04/17/17 13:52> - Discharge Dispostion Admit: Yes <Kamari Moscoso - Last Filed: 04/17/17 14:50> Diagnosis at time of Disposition: Gout attack Qualifiers: Gout site: foot Gout etiology: unspecified cause Laterality: unspecified laterality Qualified Code(s): M10.9 - Gout, unspecified - Discharge Dispostion Condition at time of disposition: Stable
[2017-04-17] MEDS ORDERED: INDOMETHACIN 50 MG CAPSULE PO ONE (12:55)
[2017-04-17] MEDS ORDERED: traMADol HCL 50 MG TABLET PO ONE (12:55)
[2017-04-17] MEDS ORDERED: traMADol HCL 50 MG TABLET ONE (13:00)
[2017-04-17 13:16] LABS: BASO % 1.1 % (0-2.0); EOS % 0.1 % (0-4.5); LYMPH % 16.9 % (8-40); MCH 29.9 pg (25.7-33.7); MCHC 32.4 g/dl (32.0-36.0); MEAN CELL VOLUME 92.4 fl (80-96); MEAN PLT VOLUME 9.8 fl (7.5-11.1); MONO % 8.1 % (3.8-10.2); NEUT % 73.8 % (42.8-82.8); PLATELET COUNT 221 K/MM3 (134-434); RBC 4.33 M/mm3 (3.60-5.2); RDW 13.7 % (11.6-15.6); WHITE BLOOD COUNT 12.2 K/mm3 (4.0-10.0)
[2017-04-17 13:45] LABS: ALBUMIN 3.8 g/dl (3.4-5.0); ANION GAP 8 (8-16); BILIRUBIN,TOTAL 0.5 mg/dL (0.2-1.0); BLOOD UREA NITROGEN 25 mg/dL (7-18); CHLORIDE 104 mmol/L (98-107); CO2 28 mmol/L (21-32); CREATININE 1.4 mg/dL (0.55-1.02); GLUCOSE,RANDOM 95 mg/dL (74-106); POTASSIUM 3.5 mmol/L (3.5-5.1); SGOT/AST 18 U/L (15-37); SGPT/ALT 20 U/L (12-78); SODIUM 140 mmol/L (136-145); URIC ACID 9.3 mg/dL (2.6-7.2)
[2017-04-17 13:50] LABS: ALK PHOS 165 U/L (45-117)
[2017-04-17 14:26] LABS: ERYTHROCYTE SEDIMENTATION RATE 77 mm/hr (0-30)
--- NOTE | 2017-04-17 14:42 | HP ---
CHIEF COMPLAINT: "I cant walk" PCP: Dr Lancaster HISTORY OF PRESENT ILLNESS: This is a 71 yo F with PMH of gout, HTN, HLD, CAD s/p MD 1982, who presents due to inability to ambulate x 3 days. She states that she has been suffering from a gout flare up for 2 weeks, that began with pain in L lateral foot and progressed to involve R great toe and L knee. She states this is similar to prior gout flare ups. She has harvinder to ED, 03/28/17, at which time she was treated with indomethacin and dcd with a 10 day prescription of meloxicam, which did not improve her symptoms. She reports one episode of subjective fever last night. She has been maintained on NSAIDS in the past but has not always been compliant with them and has never taken steroids or received intraarticular steroid injections. upon reviewing labs, patient found to have a significantly worsened renal function (SESAR/creat 25/1.5 GfR 36), compared with blood work from 08/03 (Creat 1.2 GfR 54). patient did not had blood work on . She denies history of CKD, SONALI and denies urinary symptoms. She denies CP, sob, cough, weight change, abd pain, diarrhea, constipation. ER course was notable for: (1)labs (2)ultram, indomethacin Recent Travel: denies PAST MEDICAL HISTORY: as above PAST SURGICAL HISTORY: denies Social History: lives at home alone, no aid Smoking: past smoker Alcohol: denies Drugs: denies Family History: noncontributory Allergies No Known Allergies Allergy (Verified 04/17/17 11:59) HOME MEDICATIONS: Home Medications Medication Instructions Recorded Aspirin [ASA -] 81 mg PO DAILY 07/29/16 Atorvastatin Ca [Lipitor] 40 mg PO HS 07/29/16 Metoprolol Succinate [Toprol XL -] 100 mg PO BID 07/29/16 Nifedipine ER [Procardia XL -] 90 mg PO DAILY 07/29/16 Furosemide [Lasix -] 20 mg PO DAILY #30 tablet 07/30/16 Meloxicam [Mobic] 15 mg PO DAILY PRN #10 tablet 03/28/17 Lisinopril [Prinivil] 40 mg PO DAILY 04/17/17 REVIEW OF SYSTEMS CONSTITUTIONAL: Absent: chills, malaise, loss of appetite, weight change HEENT: Absent: rhinorrhea, nasal congestion, throat pain CARDIOVASCULAR: Absent: chest pain, syncope, palpitations, irregular heart rate, lightheadedness , peripheral edema RESPIRATORY: Absent: cough, shortness of breath, dyspnea with exertion, orthopnea GASTROINTESTINAL: Absent: abdominal pain, abdominal distension, nausea, vomiting, diarrhea, constipation GENITOURINARY: Absent: dysuria, hematuria, flank pain MUSCULOSKELETAL: Absent: back pain, neck pain SKIN: Absent: rash, itching, pallor HEMATOLOGIC/IMMUNOLOGIC: Absent: easy bleeding, easy bruising ENDOCRINE: Absent: unexplained weight gain, unexplained weight loss, heat intolerance, cold intolerance NEUROLOGIC: Absent: headache, focal weakness or paresthesias PSYCHIATRIC: Absent: anxiety, depression PHYSICAL EXAMINATION Vital Signs - 24 hr 04/17/17 11:59 Temperature 99.3 F Pulse Rate 103 H Respiratory 18 Rate Blood Pressure 147/97 O2 Sat by Pulse 100 Oximetry (%) GENERAL: Awake, alert, and fully oriented, in no acute distress. HEAD: Normal with no signs of trauma. EYES: Pupils equal, round and reactive to light, extraocular movements intact, sclera anicteric, conjunctiva clear. No lid lag. EARS, NOSE, THROAT: Moist mucous membranes. NECK: supple LUNGS: Breath sounds equal, clear to auscultation bilaterally. HEART: Regular rate and rhythm, normal S1 and S2 grade 2 systolic ejection murmur ABDOMEN: obese, Soft, nontender, not distended, normoactive bowel sounds, no guarding, no rebound, no masses. MUSCULOSKELETAL: No CVA tenderness. UPPER EXTREMITIES: 2+ pulses, warm, well-perfused. No peripheral edema. LOWER EXTREMITIES: 2+ pulses, warm, well-perfused. No calf tenderness. b/l ankles edematous, tender, L knee slightly edematous and tender, restricted rom in L knee and b/l ankles, sensation intact, no tophi noted NEUROLOGICAL: Cranial nerves II-XII grossly intact. Normal speech. PSYCHIATRIC: Cooperative. Good eye contact. Appropriate mood and affect. SKIN: Warm, dry Laboratory Results - last 24 hr 04/17/17 04/17/17 13:10 13:10 WBC 12.2 H D RBC 4.33 Hgb 13.0 Hct 40.0 MCV 92.4 MCH 29.9 MCHC 32.4 RDW 13.7 Plt Count 221 D MPV 9.8 D Neutrophils % 73.8 D Lymphocytes % 16.9 D Monocytes % 8.1 Eosinophils % 0.1 D Basophils % 1.1 ESR 77 H Sodium 140 Potassium 3.5 Chloride 104 Carbon Dioxide 28 Anion Gap 8 BUN 25 H Creatinine 1.4 H Creat Clearance w eGFR 36.86 Random Glucose 95 Uric Acid 9.3 H Calcium 10.0 Total Bilirubin 0.5 AST 18 ALT 20 Alkaline Phosphatase 165 H C-Reactive Protein 24.6 H Total Protein 9.0 H Albumin 3.8 ASSESSMENT/PLAN: This is a 71 yo F with PMH of gout, HTN, HLD, CAD s/p MD 1982, who presents due to inability to ambulate x 3 days. Gout flare up involving 3 joints in [place] SONALI vs CKD HTN HLD -hold all NSAIDS, colchicine, diuretics, PB -treat gout with Prednisone taper starting at 40 gm daily; patient is a candidate for intraarticular injections -rheumatology consult -tylenol for pain -worsening renal function may be explained by NSAID use, diuretics, HTN -f/u UA, urine lytes, FENA, eosinophils -if findings are consistent with interstitial nephritis or other intra-renal etiology, consult renal and obtain kidney US -PT -social sciences chair to arrange fro SNIF and home care as patient is expected to have a slow symptomatic recovery due to prolonged duration of current flare up symptoms Dispo: obs m/s Problem List - Problem (1) SONALI (acute kidney injury) Code(s): N17.9 - ACUTE KIDNEY FAILURE, UNSPECIFIED (2) CKD (chronic kidney disease) Code(s): N18.9 - CHRONIC KIDNEY DISEASE, UNSPECIFIED (3) HTN (hypertension) Code(s): I10 - ESSENTIAL (PRIMARY) HYPERTENSION (4) HLD (hyperlipidemia) Code(s): E78.5 - HYPERLIPIDEMIA, UNSPECIFIED (5) Gout attack Code(s): M10.9 - GOUT, UNSPECIFIED Qualifiers: Gout site: foot Gout etiology: unspecified cause Laterality: unspecified laterality Qualified Code(s): M10.9 - Gout, unspecified (6) Coronary artery disease Code(s): I25.10 - ATHSCL HEART DISEASE OF [place] CORONARY ARTERY W/O ANG PCTRS (7) Old myocardial infarct Code(s): I25.2 - OLD MYOCARDIAL INFARCTION Visit type - Emergency Visit Emergency Visit: Yes Care time: The patient presented to the Emergency Department on the above date and was hospitalized for further evaluation of their emergent condition. - New Patient This patient is new to me today: Yes Date on this admission: 04/17/17 - Critical Care Critical Care patient: No
--- NOTE | 2017-04-17 15:30 | PN ---
Teaching Attending Note Name of Resident: Mathew Benedict ATTENDING PHYSICIAN STATEMENT I saw and evaluated the patient. I reviewed the resident's note and discussed the case with the resident. I agree with the resident's findings and plan as documented. SUBJECTIVE: This is a 71 year old woman with a history of gout, HTN, hyperlipidemia, [place] who comes to the ED complaining of pain in both feet x 2 weeks. She initially had pain in her left knee and later developed pain in her left foot and right first toe. She had been taking meloxicam for gout but ran out and so she was seen in the ED on 03/28 for the same symptoms. She improved with indomethacin and was prescribed meloxicam which she says she did not receive. She denies fever, chills, rash. OBJECTIVE: Vital Signs Period Temp Pulse Resp BP Sys/Gilbert Pulse Ox Last 24 Hr 99.3 F 103 18 147/97 100 HEART: S1S2, tachycardic LUNGS: Clear ABDOMEN: Obese, soft, non-tender, non-distended, normal BS EXTREMITIES: Trace pedal edema. Left knee ROM decreased secondary to pain, no swelling. Tender left 1st, 3rd MTP joins. Tender right 1st MTP joint. Laboratory Tests 04/17/17 04/17/17 13:10 13:10 WBC 12.2 H D RBC 4.33 Hgb 13.0 Hct 40.0 MCV 92.4 MCH 29.9 MCHC 32.4 RDW 13.7 Plt Count 221 D MPV 9.8 D Neutrophils % 73.8 D Lymphocytes % 16.9 D Monocytes % 8.1 Eosinophils % 0.1 D Basophils % 1.1 ESR 77 H Sodium 140 Potassium 3.5 Chloride 104 Carbon Dioxide 28 Anion Gap 8 BUN 25 H Creatinine 1.4 H Creat Clearance w eGFR 36.86 Random Glucose 95 Uric Acid 9.3 H Calcium 10.0 Total Bilirubin 0.5 AST 18 ALT 20 Alkaline Phosphatase 165 H C-Reactive Protein 24.6 H Total Protein 9.0 H Albumin 3.8 Home Medications Medication Instructions Recorded Aspirin [ASA -] 81 mg PO DAILY 07/29/16 Atorvastatin Ca [Lipitor] 40 mg PO HS 07/29/16 Metoprolol Succinate [Toprol XL -] 100 mg PO BID 07/29/16 Nifedipine ER [Procardia XL -] 90 mg PO DAILY 07/29/16 Furosemide [Lasix -] 20 mg PO DAILY #30 tablet 07/30/16 Meloxicam [Mobic] 15 mg PO DAILY PRN #10 tablet 03/28/17 Lisinopril [Prinivil] 40 mg PO DAILY 04/17/17 ASSESSMENT AND PLAN: This is a 71 year old woman with a history of gout, HTN, hyperlipidemia, [place] who presents to the ED complaining of pain in her left knee and both feet x 2 weeks. She was found to have WBC 12.2, ESR 77, BUN 25, creatinine 1.4, uric acid 9.3, C-RP 24.6 1. Acute polyarticular gout - No NSAIDs secondary to SONALI - Start Prednisone - Consider Colchicine - Consider Allopurinol for hyperuricemia - Rheumatology consult 2. Leukocytosis - Likely reactive - No evidence of infection 3. Acute kidney injury on stage 3 CKD - Hold NSAIDs, Lisinopril, HCTZ, Lasix - IV fluid - Monitor creatinine 4. HTN - Continue Procardia, Toprol XL - Hold Lisinopril, HCTZ, Lasix secondary to SONALI 5. Hyperlipidemia - Continue Lipitor 6. CAD, history of [place] - Continue aspirin, Toprol XL, Lipitor
[2017-04-17] MEDS ORDERED: HEPARIN NA (PORCINE) 5,000 UNITS/ML 1ML VIAL ONE (15:53)
[2017-04-17] MEDS ORDERED: predniSONE 20 MG TABLET (UD) ONE ×2 (15:53→16:10)
[2017-04-17] MEDS: predniSONE 20 MG TABLET (UD) PO SCH ×3 (15:58→16:48)
[2017-04-17] MEDS: HEPARIN NA (PORCINE) 5,000 UNITS/ML 1ML VIAL SQ SCH ×2 (15:58→21:57)
[2017-04-17] MEDS: SODIUM CHLORIDE 1,000 ML IV SCH (15:59)
--- NOTE | 2017-04-17 16:05 | HP ---
CHIEF COMPLAINT: leg pain PCP: Dr. Barbosa HISTORY OF PRESENT ILLNESS: 71 year old female with a past medical history of gout, hypertension, hyperlipidemia, [place] (), presents to the hospital with 2 weeks of bilateral foot pain. She states that the pain started in her L knee and later progressed to the lateral aspect of her L foot and medial aspect of R great toe. She rates it at a 10/10 in severity. Patient was admitted once before for gout on 03/28/17, where she was treated with indomethacin and given meloxicam. She states that she never picked up the meloxicam and hasn't taken medication for it. Denies chest pain, SOB, fevers, chills, nausea, vomiting, diarrhea. No sick contacts. Hasn't been sick recently. Did not receive influenza vaccination or pneumonia vaccination. ER course was notable for: (1) leukocytosis 12.2 (2) elevated ESR/CRP (3) Creatinine 1.4 Recent Travel: none PAST MEDICAL HISTORY: gout, hypertension, hyperlipidemia, NM () PAST SURGICAL HISTORY: Social History: Smoking: former smoker, quit 1982, 1 pack a day for many years Alcohol: none Drugs: none Family History: unknown Allergies No Known Allergies Allergy (Verified 04/17/17 11:59) HOME MEDICATIONS: Home Medications Medication Instructions Recorded Aspirin [ASA -] 81 mg PO DAILY 07/29/16 Atorvastatin Ca [Lipitor] 40 mg PO HS 07/29/16 Metoprolol Succinate [Toprol XL -] 100 mg PO BID 07/29/16 Nifedipine ER [Procardia XL -] 90 mg PO DAILY 07/29/16 Furosemide [Lasix -] 20 mg PO DAILY #30 tablet 07/30/16 Meloxicam [Mobic] 15 mg PO DAILY PRN #10 tablet 03/28/17 Lisinopril [Prinivil] 40 mg PO DAILY 04/17/17 REVIEW OF SYSTEMS CONSTITUTIONAL: Absent: fever, chills, diaphoresis, generalized weakness, malaise, loss of appetite, weight change HEENT: Absent: rhinorrhea, nasal congestion, throat pain, throat swelling, difficulty swallowing, mouth swelling, ear pain, eye pain, visual changes CARDIOVASCULAR: Absent: chest pain, syncope, palpitations, irregular heart rate, lightheadedness , peripheral edema RESPIRATORY: Absent: cough, shortness of breath, dyspnea with exertion, orthopnea, wheezing, stridor, hemoptysis GASTROINTESTINAL: Absent: abdominal pain, abdominal distension, nausea, vomiting, diarrhea, constipation, melena, hematochezia GENITOURINARY: Absent: dysuria, frequency, urgency, hesitancy, hematuria, flank pain, genital pain MUSCULOSKELETAL: arthralgia, Absent: myalgia, joint swelling, back pain, neck pain SKIN: Absent: rash, itching, pallor HEMATOLOGIC/IMMUNOLOGIC: Absent: easy bleeding, easy bruising, lymphadenopathy, frequent infections ENDOCRINE: Absent: unexplained weight gain, unexplained weight loss, heat intolerance, cold intolerance NEUROLOGIC: Absent: headache, focal weakness or paresthesias, dizziness, unsteady gait, seizure, mental status changes, bladder or bowel incontinence PSYCHIATRIC: Absent: anxiety, depression, suicidal or homicidal ideation, hallucinations. PHYSICAL EXAMINATION Vital Signs - 24 hr 04/17/17 04/17/17 11:59 15:43 Temperature 99.3 F 99 F Pulse Rate 103 H Pulse Rate [ 89 Apical] Respiratory 18 16 Rate Blood Pressure 147/97 Blood Pressure 150/70 [Left Arm] O2 Sat by Pulse 100 99 Oximetry (%) GENERAL: Awake, alert, and fully oriented, in no acute distress. HEAD: Normal with no signs of trauma. EYES: Pupils equal, round and reactive to light, extraocular movements intact, sclera anicteric, conjunctiva clear. No lid lag LUNGS: Breath sounds equal, clear to auscultation bilaterally. No wheezes, and no crackles. No accessory muscle use. HEART: Regular rate and rhythm, normal S1 and S2 without murmur, rub or gallop. ABDOMEN: Soft, nontender, not distended, normoactive bowel sounds, no guarding, no rebound, no masses. No hepatomegaly or splenomegaly. MUSCULOSKELETAL: Decreased ROM of L knee in knee flexion, restricted due to pain. Decreased ROM of L ankle and R toes, restricted due to pain. No Tophi noted on exam. UPPER EXTREMITIES: 2+ pulses, warm, well-perfused. No cyanosis. No clubbing. No peripheral edema. LOWER EXTREMITIES: 2+ pulses, warm, well-perfused. No calf tenderness. 1+ edema in b/l lower extremities NEUROLOGICAL: Cranial nerves II-XII intact. Normal speech. Normal gait. PSYCHIATRIC: Cooperative. Good eye contact. Appropriate mood and affect. SKIN: Warm, dry, normal turgor, no rashes or lesions noted, normal capillary refill. Laboratory Results - last 24 hr 04/17/17 04/17/17 13:10 13:10 WBC 12.2 H D RBC 4.33 Hgb 13.0 Hct 40.0 MCV 92.4 MCH 29.9 MCHC 32.4 RDW 13.7 Plt Count 221 D MPV 9.8 D Neutrophils % 73.8 D Lymphocytes % 16.9 D Monocytes % 8.1 Eosinophils % 0.1 D Basophils % 1.1 ESR 77 H Sodium 140 Potassium 3.5 Chloride 104 Carbon Dioxide 28 Anion Gap 8 BUN 25 H Creatinine 1.4 H Creat Clearance w eGFR 36.86 Random Glucose 95 Uric Acid 9.3 H Calcium 10.0 Total Bilirubin 0.5 AST 18 ALT 20 Alkaline Phosphatase 165 H C-Reactive Protein 24.6 H Total Protein 9.0 H Albumin 3.8 ASSESSMENT/PLAN: 71 year old female with a past medical history of gout, hypertension, hyperlipidemia, [place] ('83) is admitted for observation due to acute gouty arthritis and acute kidney injury #Gout: acute attack in L knee, L lateral foot and R great toe -hold NSAIDS/colchicine due to SONALI -start prednisone taper at 40mg and decrease by 10mg every 3 days (day 1 of 40mg today) -tylenol 650 Q4 PRN pain -IV fluid hydration with NS @ 100cc/hr -physical therapy request -rheumatology consult Dr. Tobias appreciated #Acute Kidney Injury: unclear if acute or chronic with new creatinine of 1.4 ( was 1.0 a year ago), possibly 2/2 NSAID induced nephropathy -hold all nephrotoxic medications, including NSAIDs, colchicine, diuretics -UA ordered -f/u urine lytes, urine creatinine, urine eosinophils #Hypertension: stable -hold furosemide, lisinopril, and spironolactone due to kidney function -continue home nifedipine ER 90mg QD -continue home Toprol XL 100mg BID #Coronary Artery Disease: stable -Continue Atorvastatin 30mg PO HS -Continue Aspirin 81mg PO QD #FEN -IV NS @ 100cc/hr -replete potassium today, BMP in AM -sodium-controlled diet #Prophylaxis -heparin 5000U subq TID #Disposition -admit for observation Visit type - Emergency Visit Emergency Visit: Yes Care time: The patient presented to the Emergency Department on the above date and was hospitalized for further evaluation of their emergent condition. - New Patient This patient is new to me today: Yes Date on this admission: 04/17/17 - Critical Care Critical Care patient: No
[2017-04-17] MEDS ORDERED: ACETAMINOPHEN 325 MG TABLET (FP) ONE (16:49)
[2017-04-17] MEDS: ACETAMINOPHEN 325 MG TABLET (FP) PO PRN (16:51)
[2017-04-17 16:58] LABS: URINE APPEARANCE SLCLOUDY; URINE BILIRUBIN NEGATIVE (NEGATIVE); URINE BLOOD NEGATIVE (NEGATIVE); URINE COLOR DKYELLOW; URINE GLUCOSE (UA) NEGATIVE (NEGATIVE); URINE KETONE TRACE (NEGATIVE); URINE NITRITE NEGATIVE (NEGATIVE); URINE UROBILINOGEN 4.0 E.U/dl mg/dL (0.2-1.0)
[2017-04-17 17:17] LABS: URINE LEUK ESTERASE 1+ (NEGATIVE); URINE PROTEIN 1+ (NEGATIVE)
[2017-04-17] MEDS ORDERED: POTASSIUM CHLORIDE TABS 20 MEQ TABLET.ER (FP) PO ONE ×2 (17:44→17:50)
[2017-04-17 18:52] LABS: EPI CELLS RARE /HPF (FEW); URINE BACTERIA MANY /hpf (NONE SEEN); URINE HYALINE CAST 10 /lpf; URINE MUCUS FEW
[2017-04-17] MEDS: ATORVASTATIN CA 40 MG TABLET (FP) PO SCH (21:57)
[2017-04-18 04:26] VITALS: BMI 34.5
[2017-04-18] MEDS: HEPARIN NA (PORCINE) 5,000 UNITS/ML 1ML VIAL SQ SCH ×3 (06:05→21:41)
[2017-04-18] MEDS: SODIUM CHLORIDE 1,000 ML IV SCH ×2 (06:05→17:22)
--- NOTE | 2017-04-18 08:46 | CONSULT ---
Consult Consult Specialty:: Rheumatology - History of Present Illness History of Present Illness: 71 yo Femal with PMH of gout, HTN, HLD, CAD s/p [place] 1982, admitted with acute arthritis in both feet. Gout. The patient has a 1 year history of episodes of acute arthritis mainly in feet diagnosed with gout. She has had 4 episodes which were treated with Indomethacin or Meloxicam and usually improved after 4 days. Six days ago she developed pain in both feet - did not improve with NSAIDs. Laboratory work-up from 08/03 revealed a creatinine of 1.2. On admission creatinine was 1.4 and uric acid 9.3 and ESR 77. She was started on Prednisone 40 mg/d and today she had partial improvement. - History Source History Provided By: Patient, Medical Record - Past Medical History Cardio/Vascular: Yes: CAD, HTN, [place] - Alcohol/Substance Use Hx Alcohol Use: Yes (beercassi) - Smoking History Smoking history: Never smoked Have you smoked in the past 12 months: No Home Medications - Allergies Allergies/Adverse Reactions: Allergies Allergy/AdvReac Type Severity Reaction Status Date / Time No Known Allergies Allergy Verified 04/17/17 11:59 - Home Medications Home Medications: Ambulatory Orders Aspirin [ASA -] 81 mg PO DAILY 07/29/16 Atorvastatin Ca [Lipitor] 40 mg PO HS 07/29/16 Metoprolol Succinate [Toprol XL -] 100 mg PO BID 07/29/16 Nifedipine ER [Procardia XL -] 90 mg PO DAILY 07/29/16 Furosemide [Lasix -] 20 mg PO DAILY #30 tablet 07/30/16 Meloxicam [Mobic] 15 mg PO DAILY PRN #10 tablet 03/28/17 Lisinopril/Hydrochlorothiazide [Lisinopril-Hctz 20-25 mg Tab] 20 - 25 mg PO DAILY 04/17/17 Spironolactone 25 mg PO DAILY 04/17/17 Review of Systems - Review of Systems Constitutional: reports: Malaise Eyes: reports: No Symptoms HENT: reports: No Symptoms Neck: reports: No Symptoms Cardiovascular: reports: No Symptoms Respiratory: reports: No Symptoms Gastrointestinal: reports: No Symptoms Musculoskeletal: reports: Other (See HPI) Physical Exam Vital Signs: Vital Signs Temperature 97.7 F 04/18/17 06:00 Pulse Rate 76 04/18/17 06:00 Respiratory Rate 20 04/18/17 06:00 Blood Pressure 168/77 04/18/17 06:00 O2 Sat by Pulse Oximetry (%) 99 04/17/17 15:43 Constitutional: Yes: Mild Distress Eyes: Yes: WNL HENT: Yes: WNL Neck: Yes: WNL Cardiovascular: Yes: WNL Respiratory: Yes: WNL Gastrointestinal: Yes: WNL Musculoskeletal: Yes: Other ([place] in the left 1st, 3rd and 4th MTPs and right 1st MTP.) Labs: CBC, BMP 04/17/17 13:10 04/17/17 13:10 Laboratory Tests 04/17/17 04/17/17 04/17/17 13:10 13:10 16:45 ESR 77 H Creatinine 1.4 H Creat Clearance w eGFR 36.86 Urine pH 5.0 Ur Specific [place] 1.021 Urine Protein 1+ H Urine Glucose (UA) Negative Urine Ketones Trace H Urine Blood Negative Urine Nitrite Negative Urine Bilirubin Negative Urine Urobilinogen 4.0 e.u/dl H Ur Leukocyte Esterase 1+ H Urine WBC (Auto) 13 Urine RBC (Auto) 2 Problem List - Problems (1) Gout attack Assessment/Plan: Acute polyarticular gouty arthritis. Chronic kidney disease (rule out exacerbation secondary to NSAIDs),. The patient was started pn Prednisone 40 mg /d with partial improvement. Plan: I suggest to continue with the scheduled tapering of Prednisone. Start Colchicine 0.6 mg/d and as outpatient she should be started on Allopurinol (100 mg/d and after 1 week increase to 200 mg/d) and continue Colchicine. She should be followed then by Rheumatology. Code(s): M10.9 - GOUT, UNSPECIFIED Qualifiers: Gout site: foot Gout etiology: unspecified cause Laterality: unspecified laterality Qualified Code(s): M10.9 - Gout, unspecified
[2017-04-18 09:21] LABS: HEMOGLOBIN 11.6 GM/dL (10.7-15.3); LYMPH % 19.5 % (8-40); MCH 29.8 pg (25.7-33.7); MCHC 32.3 g/dl (32.0-36.0); MEAN CELL VOLUME 92.3 fl (80-96); MEAN PLT VOLUME 10.2 fl (7.5-11.1); MONO % 7.6 % (3.8-10.2); NEUT % 71.9 % (42.8-82.8); PLATELET COUNT 257 K/MM3 (134-434); RDW 13.3 % (11.6-15.6); WHITE BLOOD COUNT 9.8 K/mm3 (4.0-10.0)
[2017-04-18 09:41] LABS: ANION GAP 7 (8-16); BLOOD UREA NITROGEN 28 mg/dL (7-18); CALCIUM 8.8 mg/dL (8.5-10.1); CHLORIDE 109 mmol/L (98-107); CO2 25 mmol/L (21-32); GLUCOSE,RANDOM 114 mg/dL (74-106); MAGNESIUM 2.2 mg/dL (1.8-2.4); PHOSPHOROUS 2.4 mg/dL (2.5-4.9); SODIUM 141 mmol/L (136-145)
[2017-04-18] MEDS: predniSONE 20 MG TABLET (UD) PO SCH (09:49)
[2017-04-18] MEDS: COLCHICINE 0.6 MG TABLET (FP) PO SCH (09:49)
[2017-04-18] MEDS: ASPIRIN 81 MG CHEWABLE TABLETS PO SCH (09:49)
[2017-04-18] MEDS: NIFEdipine E.R. 90 MG TABLET (FP) PO SCH (12:54)
[2017-04-18] MEDS: hydrALAZINE HCL 25 MG TABLET (FP) PO SCH ×3 (12:54→21:41)
--- NOTE | 2017-04-18 16:12 | PN ---
Teaching Attending Note Name of Resident: Mathew Benedict ATTENDING PHYSICIAN STATEMENT I saw and evaluated the patient. I reviewed the resident's note and discussed the case with the resident. I agree with the resident's findings and plan as documented. SUBJECTIVE: pain has improved in fet and L knee . can't ambulate to bathroom due to pain OBJECTIVE: NAD CV: RRR Lungs: CTAB ext: edema and tenderness to palpation over b/l 1st MTP joints. L knee with no erythema , has TP over medial aspect of joint. suprepatellar effusion, and limited range of motion . no erythema over legs ASSESSMENT AND PLAN: 71 y/o lady with h/o HTN, gout and asthma , who presented with pain in L knee and b/l 1st MTP joints . she was fount to have polyarticular gout attack. 1- Polyarticular gout attack. improved on prednisone - cont prednisone taper - No value in checking UA - appreciate rheum help: start colchicine now as her renal function recovered. - in 2 weeks after dc , will start allopurinol as instructed - f/u with rheum 2- SONALI:likely due to prerenal etiology as improved with IVF. NSAIds contributing - cont IVF. can dc tomorrow - avoid NSAIDs even after dc . 3- asymptomatic pysuria . no need for treatment 4- HTN: uncontrolled due to pain and holding lisinopril and HCTZ and aldactone . - cont metoprolol and nifedipine - add hydralazine TId while here . - can resume her home regimen if renal function remains stable ( and dc hydralazine ) 5- CAD: cont ASA and statin Dispo : ? home with VNS tomorrow . unsafe for dc today as she can't ambulate
--- NOTE | 2017-04-18 17:53 | PN ---
Physical Exam: SUBJECTIVE: Patient seen and examined at bedside. Patient states that her pain has improved and is able to move her extremities without being restricted due to pain, but states that she cannot yet walk. OBJECTIVE: Vital Signs Period Temp Pulse Resp BP Sys/Gilbert Pulse Ox Last 24 Hr 97.4 F-98.7 F 66-82 16-20 138-186/76-90 97 GENERAL: Awake, alert, and fully oriented, in no acute distress. HEAD: Normal with no signs of trauma. EYES: Pupils equal, round and reactive to light, extraocular movements intact, sclera anicteric, conjunctiva clear. No lid lag LUNGS: Breath sounds equal, clear to auscultation bilaterally. No wheezes, and no crackles. No accessory muscle use. HEART: Regular rate and rhythm, normal S1 and S2 without murmur, rub or gallop. ABDOMEN: Soft, nontender, not distended, normoactive bowel sounds, no guarding, no rebound, no masses. No hepatomegaly or splenomegaly. MUSCULOSKELETAL: Improved ROM of L knee in flexion, L lateral foot and R lateral foot. Decreased tenderness to palpation in those areas as well. UPPER EXTREMITIES: 2+ pulses, warm, well-perfused. No cyanosis. No clubbing. No peripheral edema. LOWER EXTREMITIES: 2+ pulses, warm, well-perfused. No calf tenderness. 1+ edema in b/l lower extremities NEUROLOGICAL: Cranial nerves II-XII intact. Normal speech. Normal gait. PSYCHIATRIC: Cooperative. Good eye contact. Appropriate mood and affect. SKIN: Warm, dry, normal turgor, no rashes or lesions noted, normal capillary refill. Laboratory Results - last 24 hr 04/17/17 04/17/17 04/18/17 16:45 16:45 09:00 WBC 9.8 RBC 3.90 Hgb 11.6 D Hct 36.0 MCV 92.3 MCH 29.8 MCHC 32.3 RDW 13.3 Plt Count 257 MPV 10.2 Neutrophils % 71.9 Lymphocytes % 19.5 Monocytes % 7.6 Eosinophils % 0.0 D Basophils % 1.0 Sodium Potassium Chloride Carbon Dioxide Anion Gap BUN Creatinine Random Glucose Calcium Phosphorus Magnesium Urine WBC (Auto) 13 Urine RBC (Auto) 2 Ur Epithelial Cells Rare Urine Bacteria Many Hyaline Casts 10 Urine Mucus Few Ur Random Sodium 12 Ur Random Potassium 33.1 Ur Random Chloride < 10 Urine Creatinine 359.0 H 04/18/17 09:00 WBC RBC Hgb Hct MCV MCH MCHC RDW Plt Count MPV Neutrophils % Lymphocytes % Monocytes % Eosinophils % Basophils % Sodium 141 Potassium 4.0 Chloride 109 H Carbon Dioxide 25 Anion Gap 7 L BUN 28 H Creatinine 1.0 Random Glucose 114 H Calcium 8.8 Phosphorus 2.4 L Magnesium 2.2 Urine WBC (Auto) Urine RBC (Auto) Ur Epithelial Cells Urine Bacteria Hyaline Casts Urine Mucus Ur Random Sodium Ur Random Potassium Ur Random Chloride Urine Creatinine Active Medications Generic Name Dose Route Start Last Admin Trade Name Freq PRN Reason Stop Dose Admin Acetaminophen 650 mg 04/17/17 15:31 04/17/17 16:51 Tylenol - PO 650 mg Q4H PRN Administration PAIN Aspirin 81 mg 04/18/17 10:00 04/18/17 09:49 Asa - PO 81 mg DAILY TIMOTEO Administration Atorvastatin Calcium 40 mg 04/17/17 22:00 04/17/17 21:57 Lipitor - PO 40 mg HS TIMOTEO Administration Colchicine 0.6 mg 04/18/17 10:00 04/18/17 09:49 Colcrys - PO 0.6 mg DAILY TIMOTEO Administration Heparin Sodium (Porcine) 5,000 unit 04/17/17 15:45 04/18/17 13:24 Heparin - SQ 5,000 unit TID TIMOTEO Administration Hydralazine HCl 25 mg 04/18/17 11:45 04/18/17 13:22 Apresoline - PO Not Given TID TIMOTEO Sodium Chloride 1,000 mls @ 100 mls/hr 04/17/17 15:45 04/18/17 17:22 Normal Saline - IV 100 mls/hr ASDIR TIMOTEO Administration Metoprolol Succinate 100 mg 04/17/17 22:00 04/18/17 09:49 Toprol Xl - PO 100 mg BID TIMOTEO Administration Nifedipine 90 mg 04/18/17 10:00 04/18/17 12:54 Procardia Xl - PO 90 mg DAILY TIMOTEO Administration Prednisone 40 mg 04/17/17 15:45 04/18/17 09:49 Deltasone - PO 04/20/17 15:44 40 mg DAILY TIOMTEO Administration Prednisone 30 mg 04/20/17 15:45 Deltasone - PO 04/23/17 15:44 DAILY TIMOTEO Prednisone 20 mg 04/23/17 15:45 Deltasone - PO 04/26/17 15:44 DAILY TIMOTEO Prednisone 10 mg 04/26/17 15:45 Deltasone - PO 04/29/17 15:44 DAILY TIMOTEO ASSESSMENT/PLAN: 71 year old female with a past medical history of gout, hypertension, hyperlipidemia, [place] ('83) is admitted for observation due to acute gouty arthritis and acute kidney injury #Gout: acute attack in L knee, L lateral foot and R great toe -can give colchicine -continue prednisone taper at 40mg and decrease by 10mg every 3 days (day 2 of 40mg today) -tylenol 650 Q4 PRN pain -IV fluid hydration with NS @ 100cc/hr -physical therapy request -rheumatology consult Dr. Tobias appreciated #Acute Kidney Injury: resolved: likely prerenal #Hypertension: stable -held furosemide, lisinopril, and spironolactone due to kidney function, reevaluate BP in AM -continue home nifedipine ER 90mg QD -continue home Toprol XL 100mg BID -start hydralazine 25 TID #Coronary Artery Disease: stable -Continue Atorvastatin 40mg PO HS -Continue Aspirin 81mg PO QD #FEN -IV NS @ 100cc/hr -BMP in AM -sodium-controlled diet #Prophylaxis -heparin 5000U subq TID #Disposition -admit for observation Visit type - Emergency Visit Emergency Visit: No - New Patient This patient is new to me today: No - Critical Care Critical Care patient: No
[2017-04-18] MEDS ORDERED: INSULIN (NOVOLOG) ASPART 100 UNITS/ML 10ML VIAL ONE (21:30)
[2017-04-18] MEDS: ATORVASTATIN CA 40 MG TABLET (FP) PO SCH (21:41)
[2017-04-18] MEDS ORDERED: PT OWN MED DRAWER 7, Y5N ONE (21:57)
[2017-04-19] MEDS: SODIUM CHLORIDE 1,000 ML IV SCH ×2 (05:34→15:50)
[2017-04-19] MEDS: HEPARIN NA (PORCINE) 5,000 UNITS/ML 1ML VIAL SQ SCH ×3 (06:22→22:03)
[2017-04-19] MEDS: hydrALAZINE HCL 25 MG TABLET (FP) PO SCH ×3 (06:23→22:03)
[2017-04-19 06:46] LABS: HEMATOCRIT 35.2 % (32.4-45.2); HEMOGLOBIN 11.1 GM/dL (10.7-15.3); MCH 29.3 pg (25.7-33.7); MCHC 31.5 g/dl (32.0-36.0); MEAN CELL VOLUME 92.9 fl (80-96); MEAN PLT VOLUME 10.9 fl (7.5-11.1); PLATELET COUNT 258 K/MM3 (134-434); RBC 3.79 M/mm3 (3.60-5.2); RDW 13.6 % (11.6-15.6); WHITE BLOOD COUNT 12.6 K/mm3 (4.0-10.0)
[2017-04-19 07:18] LABS: CHLORIDE 112 mmol/L (98-107); POTASSIUM 3.8 mmol/L (3.5-5.1); SODIUM 144 mmol/L (136-145)
[2017-04-19 07:27] LABS: ANION GAP 11 (8-16); BLOOD UREA NITROGEN 18 mg/dL (7-18); CALCIUM 8.7 mg/dL (8.5-10.1); CO2 21 mmol/L (21-32); CREATININE 0.8 mg/dL (0.55-1.02); GLUCOSE,RANDOM 92 mg/dL (74-106)
--- NOTE | 2017-04-19 08:04 | PN ---
Teaching Attending Note Name of Resident: Mathew Benedict ATTENDING PHYSICIAN STATEMENT I saw and evaluated the patient. I reviewed the resident's note and discussed the case with the resident. I agree with the resident's findings and plan as documented. SUBJECTIVE: Patient has difficulty with ambulation, lives by herself and unable to ambulate. OBJECTIVE: Vital Signs Temperature 98.6 F 04/19/17 06:25 Pulse Rate 73 04/19/17 06:25 Respiratory Rate 20 04/19/17 06:25 Blood Pressure 146/74 04/19/17 06:25 O2 Sat by Pulse Oximetry (%) 97 04/18/17 21:00 CBCD WBC 12.6 K/mm3 (4.0-10.0) H 04/19/17 05:35 RBC 3.79 M/mm3 (3.60-5.2) 04/19/17 05:35 Hgb 11.1 GM/dL (10.7-15.3) 04/19/17 05:35 Hct 35.2 % (32.4-45.2) 04/19/17 05:35 MCV 92.9 fl (80-96) 04/19/17 05:35 MCHC 31.5 g/dl (32.0-36.0) L 04/19/17 05:35 RDW 13.6 % (11.6-15.6) 04/19/17 05:35 Plt Count 258 K/MM3 (134-434) 04/19/17 05:35 MPV 10.9 fl (7.5-11.1) 04/19/17 05:35 CMP Sodium 141 mmol/L (136-145) 04/18/17 09:00 Potassium 4.0 mmol/L (3.5-5.1) 04/18/17 09:00 Chloride 109 mmol/L (98-107) H 04/18/17 09:00 Carbon Dioxide 25 mmol/L (21-32) 04/18/17 09:00 Anion Gap 7 (8-16) L 04/18/17 09:00 BUN 28 mg/dL (7-18) H 04/18/17 09:00 Creatinine 1.0 mg/dL (0.55-1.02) 04/18/17 09:00 Creat Clearance w eGFR 36.86 (>60) 04/17/17 13:10 Random Glucose 114 mg/dL (74-106) H 04/18/17 09:00 Calcium 8.8 mg/dL (8.5-10.1) 04/18/17 09:00 Total Bilirubin 0.5 mg/dL (0.2-1.0) 04/17/17 13:10 AST 18 U/L (15-37) 04/17/17 13:10 ALT 20 U/L (12-78) 04/17/17 13:10 Alkaline Phosphatase 165 U/L (45-117) H 04/17/17 13:10 Total Protein 9.0 g/dl (6.4-8.2) H 04/17/17 13:10 Albumin 3.8 g/dl (3.4-5.0) 04/17/17 13:10 Current Medications Generic Name Dose Route Start Last Admin Trade Name Freq PRN Reason Stop Dose Admin Acetaminophen 650 mg 04/17/17 15:31 04/17/17 16:51 Tylenol - PO 650 mg Q4H PRN Administration PAIN Aspirin 81 mg 04/18/17 10:00 04/18/17 09:49 Asa - PO 81 mg DAILY TIMOTEO Administration Atorvastatin Calcium 40 mg 04/17/17 22:00 04/18/17 21:41 Lipitor - PO 40 mg HS TIMOTEO Administration Colchicine 0.6 mg 04/18/17 10:00 04/18/17 09:49 Colcrys - PO 0.6 mg DAILY TIMOTEO Administration Heparin Sodium (Porcine) 5,000 unit 04/17/17 15:45 04/19/17 06:22 Heparin - SQ 5,000 unit TID TIMOTEO Administration Hydralazine HCl 25 mg 04/18/17 11:45 04/19/17 06:23 Apresoline - PO 25 mg TID TIMOTEO Administration Sodium Chloride 1,000 mls @ 100 mls/hr 04/17/17 15:45 04/19/17 05:34 Normal Saline - IV 100 mls/hr ASDIR TIMOTEO Administration Metoprolol Succinate 100 mg 04/17/17 22:00 04/18/17 21:41 Toprol Xl - PO 100 mg BID TIMOTEO Administration Nifedipine 90 mg 04/18/17 10:00 04/18/17 12:54 Procardia Xl - PO 90 mg DAILY TIMOTEO Administration Prednisone 40 mg 04/17/17 15:45 04/18/17 09:49 Deltasone - PO 04/20/17 15:44 40 mg DAILY TIMOTEO Administration Prednisone 30 mg 04/20/17 15:45 Deltasone - PO 04/23/17 15:44 DAILY [facility] Prednisone 20 mg 04/23/17 15:45 Deltasone - PO 04/26/17 15:44 DAILY [facility] Prednisone 10 mg 04/26/17 15:45 Deltasone - PO 04/29/17 15:44 DAILY [facility] Home Medications Medication Instructions Recorded Aspirin [ASA -] 81 mg PO DAILY 07/29/16 Atorvastatin Ca [Lipitor] 40 mg PO HS 07/29/16 Metoprolol Succinate [Toprol XL -] 100 mg PO BID 07/29/16 Nifedipine ER [Procardia XL -] 90 mg PO DAILY 07/29/16 Furosemide [Lasix -] 20 mg PO DAILY #30 tablet 07/30/16 Meloxicam [Mobic] 15 mg PO DAILY PRN #10 tablet 03/28/17 Lisinopril/Hydrochlorothiazide 20 - 25 mg PO DAILY 04/17/17 [Lisinopril-Hctz 20-25 mg Tab] Spironolactone 25 mg PO DAILY 04/17/17 PE: pleasant lady CV: RRR Lungs: CTAB ext: edema and tenderness to palpation over b/l 1st MTP joints. No erythema noted with limited range of motion . ASSESSMENT AND PLAN: 71 y/o lady with h/o HTN, gout and asthma , who presented with pain in L knee and b/l 1st MTP joints . she was fount to have polyarticular gout attack. # Acute Polyarticular gout attack. improving on prednisone but still having difficulty with ambulation. cont prednisone taper ,continue colchicine in 2 weeks after dc , patient can be started on allopurinol, f/u with rheum. ALso Elevated ESR,CRP on admission # SONALI: on IVF improved discontinue Nsaids avoid NSAIDs even after dc . # asymptomatic pyuria . no need for treatment # HTN: continue home meds # CAD: cont ASA and statin DVT Px: Heparin sq Dispo : home with VNS when patient is stable since patient lives by herself , unsafe for dc today as she can't ambulate patient is inpatient now.
[2017-04-19] MEDS ORDERED: PT OWN MED DRAWER 7, Y5N ONE (10:12)
[2017-04-19] MEDS: COLCHICINE 0.6 MG TABLET (FP) PO SCH ×2 (11:16→22:03)
[2017-04-19] MEDS: ASPIRIN 81 MG CHEWABLE TABLETS PO SCH (11:17)
[2017-04-19] MEDS: NIFEdipine E.R. 90 MG TABLET (FP) PO SCH (11:17)
[2017-04-19] MEDS: predniSONE 20 MG TABLET (UD) PO SCH (12:01)
--- NOTE | 2017-04-19 13:36 | PN ---
Physical Exam: SUBJECTIVE: Patient seen and examined at bedside. Pain has improved, no acute issues overnight. OBJECTIVE: Vital Signs Period Temp Pulse Resp BP Sys/Gilbert Pulse Ox Last 24 Hr 98 F-98.6 F 73-78 16-20 138-160/74-83 97 GENERAL: Awake, alert, and fully oriented, in no acute distress. HEAD: Normal with no signs of trauma. EYES: Pupils equal, round and reactive to light, extraocular movements intact, sclera anicteric, conjunctiva clear. No lid lag LUNGS: Breath sounds equal, clear to auscultation bilaterally. No wheezes, and no crackles. No accessory muscle use. HEART: Regular rate and rhythm, normal S1 and S2 without murmur, rub or gallop. ABDOMEN: Soft, nontender, not distended, normoactive bowel sounds, no guarding, no rebound, no masses. No hepatomegaly or splenomegaly. MUSCULOSKELETAL: Improved ROM of L knee in flexion, L lateral foot and R lateral foot. Decreased tenderness to palpation in those areas as well. UPPER EXTREMITIES: 2+ pulses, warm, well-perfused. No cyanosis. No clubbing. No peripheral edema. LOWER EXTREMITIES: 2+ pulses, warm, well-perfused. No calf tenderness. 1+ edema in b/l lower extremities NEUROLOGICAL: Cranial nerves II-XII intact. Normal speech. Normal gait. PSYCHIATRIC: Cooperative. Good eye contact. Appropriate mood and affect. SKIN: Warm, dry, normal turgor, no rashes or lesions noted, normal capillary refill. Laboratory Results - last 24 hr 04/18/17 04/19/17 04/19/17 20:50 05:35 05:35 WBC 12.6 H RBC 3.79 Hgb 11.1 Hct 35.2 MCV 92.9 MCH 29.3 MCHC 31.5 L RDW 13.6 Plt Count 258 MPV 10.9 Sodium 144 Potassium 3.8 Chloride 112 H Carbon Dioxide 21 Anion Gap 11 BUN 18 Creatinine 0.8 Random Glucose 92 Calcium 8.7 Ur Random Urea Nitrogn 1455 Active Medications Generic Name Dose Route Start Last Admin Trade Name Freq PRN Reason Stop Dose Admin Acetaminophen 650 mg 04/17/17 15:31 04/17/17 16:51 Tylenol - PO 650 mg Q4H PRN Administration PAIN Aspirin 81 mg 04/18/17 10:00 04/19/17 11:17 Asa - PO 81 mg DAILY TIMOTEO Administration Atorvastatin Calcium 40 mg 04/17/17 22:00 04/18/17 21:41 Lipitor - PO 40 mg HS TIMOTEO Administration Colchicine 0.6 mg 04/19/17 22:00 Colcrys - PO BID TIMOTEO Heparin Sodium (Porcine) 5,000 unit 04/17/17 15:45 04/19/17 06:22 Heparin - SQ 5,000 unit TID TIMOTEO Administration Hydralazine HCl 25 mg 04/18/17 11:45 04/19/17 06:23 Apresoline - PO 25 mg TID TIMOTEO Administration Sodium Chloride 1,000 mls @ 100 mls/hr 04/17/17 15:45 04/19/17 05:34 Normal Saline - IV 100 mls/hr ASDIR TIMOTEO Administration Metoprolol Succinate 100 mg 04/17/17 22:00 04/19/17 11:17 Toprol Xl - PO 100 mg BID TIMOTEO Administration Nifedipine 90 mg 04/18/17 10:00 04/19/17 11:17 Procardia Xl - PO 90 mg DAILY TIMOTEO Administration Prednisone 40 mg 04/17/17 15:45 04/19/17 12:01 Deltasone - PO 04/20/17 15:44 40 mg DAILY TIMOTEO Administration Prednisone 30 mg 04/20/17 15:45 Deltasone - PO 04/23/17 15:44 DAILY TIMOTEO Prednisone 20 mg 04/23/17 15:45 Deltasone - PO 04/26/17 15:44 DAILY TIMOTEO Prednisone 10 mg 04/26/17 15:45 Deltasone - PO 04/29/17 15:44 DAILY TIMOTEO US B/L Lower extremities: negative for DVT ASSESSMENT/PLAN: 71 year old female with a past medical history of gout, hypertension, hyperlipidemia, MD ('[id number]) is admitted for observation due to acute gouty arthritis and acute kidney injury #Gout: acute attack in L knee, L lateral foot and R great toe -colchicine 0.6 BID -continue prednisone taper at 40mg and decrease by 10mg every 3 days (day 3 of 40mg today, 30mg tomorrow) -tylenol 650 Q4 PRN pain -IV fluid hydration with NS @ 100cc/hr -physical therapy request -rheumatology consult Dr. Tobias appreciated #Acute Kidney Injury: resolved: likely prerenal #Hypertension: stable -held furosemide, lisinopril, and spironolactone due to kidney function, reevaluate BP in AM -continue home nifedipine ER 90mg QD -continue home Toprol XL 100mg BID -start hydralazine 25 TID #Coronary Artery Disease: stable -Continue Atorvastatin 40mg PO HS -Continue Aspirin 81mg PO QD #FEN -IV NS @ 100cc/hr -BMP in AM -sodium-controlled diet #Prophylaxis -heparin 5000U subq TID #Disposition -continue to monitor on med surg Visit type - Emergency Visit Emergency Visit: No - New Patient This patient is new to me today: No - Critical Care Critical Care patient: No
[2017-04-19] MEDS: ATORVASTATIN CA 40 MG TABLET (FP) PO SCH (22:04)
[2017-04-19] MEDS: ACETAMINOPHEN 325 MG TABLET (FP) PO PRN (22:08)
[2017-04-20] MEDS: hydrALAZINE HCL 25 MG TABLET (FP) PO SCH ×2 (06:09→13:36)
[2017-04-20] MEDS: HEPARIN NA (PORCINE) 5,000 UNITS/ML 1ML VIAL SQ SCH ×2 (06:09→13:36)
[2017-04-20] MEDS: SODIUM CHLORIDE 1,000 ML IV SCH (06:09)
[2017-04-20 09:11] LABS: HEMATOCRIT 35.3 % (32.4-45.2); HEMOGLOBIN 11.1 GM/dL (10.7-15.3); MCH 29.4 pg (25.7-33.7); MCHC 31.6 g/dl (32.0-36.0); MEAN CELL VOLUME 92.9 fl (80-96); MEAN PLT VOLUME 10.7 fl (7.5-11.1); PLATELET COUNT 258 K/MM3 (134-434); RDW 13.8 % (11.6-15.6); WHITE BLOOD COUNT 13.7 K/mm3 (4.0-10.0)
[2017-04-20 09:37] LABS: ANION GAP 7 (8-16); BLOOD UREA NITROGEN 17 mg/dL (7-18); CALCIUM 8.4 mg/dL (8.5-10.1); CHLORIDE 112 mmol/L (98-107); CO2 26 mmol/L (21-32); CREATININE 0.9 mg/dL (0.55-1.02); GLUCOSE,RANDOM 79 mg/dL (74-106); POTASSIUM 4.5 mmol/L (3.5-5.1); SODIUM 145 mmol/L (136-145)
[2017-04-20] MEDS ORDERED: PT OWN MED DRAWER 7, Y5N ONE ×2 (10:18→13:34)
[2017-04-20] MEDS: ASPIRIN 81 MG CHEWABLE TABLETS PO SCH (10:19)
[2017-04-20] MEDS: NIFEdipine E.R. 90 MG TABLET (FP) PO SCH (10:20)
[2017-04-20] MEDS: COLCHICINE 0.6 MG TABLET (FP) PO SCH (10:20)
[2017-04-20] MEDS: predniSONE 20 MG TABLET (UD) PO SCH (10:20)
--- NOTE | 2017-04-20 14:27 | DS ---
Physical Exam: SUBJECTIVE: Patient seen and examined at bedside. Pain has significantly improved since yesterday but patient cannot yet bear weight. OBJECTIVE: Vital Signs Period Temp Pulse Resp BP Sys/Gilbert Pulse Ox Last 24 Hr 98.3 F-98.6 F 64-90 16-20 134-160/71-78 97-98 PHYSICAL EXAM GENERAL: Awake, alert, and fully oriented, in no acute distress. HEAD: Normal with no signs of trauma. EYES: Pupils equal, round and reactive to light, extraocular movements intact, sclera anicteric, conjunctiva clear. No lid lag LUNGS: Breath sounds equal, clear to auscultation bilaterally. No wheezes, and no crackles. No accessory muscle use. HEART: Regular rate and rhythm, normal S1 and S2 without murmur, rub or gallop. ABDOMEN: Soft, nontender, not distended, normoactive bowel sounds, no guarding, no rebound, no masses. No hepatomegaly or splenomegaly. MUSCULOSKELETAL: Improved ROM of L knee in flexion, L lateral foot and R lateral foot. Decreased tenderness to palpation in those areas as well. UPPER EXTREMITIES: 2+ pulses, warm, well-perfused. No cyanosis. No clubbing. No peripheral edema. LOWER EXTREMITIES: 2+ pulses, warm, well-perfused. No calf tenderness. 1+ edema in b/l lower extremities NEUROLOGICAL: Cranial nerves II-XII intact. Normal speech. Normal gait. PSYCHIATRIC: Cooperative. Good eye contact. Appropriate mood and affect. SKIN: Warm, dry, normal turgor, no rashes or lesions noted, normal capillary refill. LABS Laboratory Results - last 24 hr 04/17/17 04/20/17 04/20/17 16:45 08:25 08:25 WBC 13.7 H RBC 3.80 Hgb 11.1 Hct 35.3 MCV 92.9 MCH 29.4 MCHC 31.6 L RDW 13.8 Plt Count 258 MPV 10.7 Sodium 145 Potassium 4.5 Chloride 112 H Carbon Dioxide 26 Anion Gap 7 L BUN 17 Creatinine 0.9 Random Glucose 79 Calcium 8.4 L Urine Eosinophils None seen HOSPITAL COURSE: Date of Admission:04/17/17 71 year old female with a past medical history of gout, hypertension, hyperlipidemia, SD ('83) is admitted to the hospital for multi-joint gouty arthritis and acute kidney injury. Patient had a creatinine of 1.5 on admission likely due to NSAID use and fluid depleted status. She was started on a prednisone taper (40mg x3days and taper by 10mg q3d). The next morning her creatinine normalized and patient was started on colchicine. She improved over the course of 2 days, but was still unable to walk with physical therapy. She was discharged to a SNF with instructions to finish the steroid taper, continue taking colchicine, and to follow with her primary care physician. Date of Discharge: 04/20/17 Minutes to complete discharge: 35 <Mathew Benedict - Last Filed: 04/20/17 14:32> Physical Exam: Patient was seen and examined with the resident. patient is being discharged to rehab. since is unable to ambulate, will continue her prednisone and continue Colchicine for now. <Velia López - Last Filed: 04/20/17 17:40> Discharge Summary Reason For Visit: ACUTE GOUT Current Active Problems SONALI (acute kidney injury) (Acute) CKD (chronic kidney disease) (Acute) Gout attack (Acute) HLD (hyperlipidemia) (Acute) HTN (hypertension) (Acute) - Home Medications Comprehensive Discharge Medication List: Ambulatory Orders Aspirin [ASA -] 81 mg PO DAILY 07/29/16 Atorvastatin Ca [Lipitor] 40 mg PO HS 07/29/16 Metoprolol Succinate [Toprol XL -] 100 mg PO BID 07/29/16 Nifedipine ER [Procardia XL -] 90 mg PO DAILY 07/29/16 Furosemide [Lasix -] 20 mg PO DAILY #30 tablet 07/30/16 Lisinopril/Hydrochlorothiazide [Lisinopril-Hctz 20-25 mg Tab] 20 - 25 mg PO DAILY 04/17/17 Spironolactone 25 mg PO DAILY 04/17/17 Colchicine [Colcrys -] 0.6 mg PO DAILY #30 tablet 04/20/17 Prednisone See Taper PO DAILY #18 tablet 04/20/17 <Mathew Benedict - Last Filed: 04/20/17 14:32> - Home Medications Comprehensive Discharge Medication List: Ambulatory Orders Aspirin [ASA -] 81 mg PO DAILY 07/29/16 Atorvastatin Ca [Lipitor] 40 mg PO HS 07/29/16 Metoprolol Succinate [Toprol XL -] 100 mg PO BID 07/29/16 Nifedipine ER [Procardia XL -] 90 mg PO DAILY 07/29/16 Furosemide [Lasix -] 20 mg PO DAILY #30 tablet 07/30/16 Lisinopril/Hydrochlorothiazide [Lisinopril-Hctz 20-25 mg Tab] 20 - 25 mg PO DAILY 04/17/17 Spironolactone 25 mg PO DAILY 04/17/17 Colchicine [Colcrys -] 0.6 mg PO DAILY #30 tablet 04/20/17 Prednisone See Taper PO DAILY #18 tablet 04/20/17 <Velia López - Last Filed: 04/20/17 17:40> Condition: Improved - Instructions Diet, Activity, Other Instructions: You were treated in the hospital for an acute gout attack. Medical Recommendations: -You were treated with Prednisone, a steroid. Please continue to take this medication on a taper. Lower the dose by 10mg every three days. For example: 30mg for 3 days, then 20mg for 3 days, then 10mg for 3 days, then stop. -Continue taking colchicine 0.6mg by mouth daily -You can resume your home medications when you are discharged -avoid taking NSAIDs like motrin, advil, aleve, meloxicam, toradol -Make an appointment with your primary care physician within 1 week of discharge. If you experience severe pain, shortness of breath, chest pain, nausea, vomiting, diarrhea, please return to the emergency room immediately. Referrals: Malachi Lancaster MD [Primary Care Provider] - Disposition: INTERMEDIATE FACILITY This patient is new to me today: No Emergency Visit: No Critical Care patient: No - Discharge Referral Referred to [facility] No <Mathew Benedict - Last Filed: 04/20/17 14:32>
[2017-04-20 14:46] VITALS: BP 127/62; PULSE 74; TEMP 98.5
[2017-04-20] MEDS ORDERED: predniSONE 10 MG TABLET (UD) PO SCH (15:45)
[2017-04-23] MEDS ORDERED: predniSONE 20 MG TABLET (UD) PO SCH (15:45)
[2017-04-26] MEDS ORDERED: predniSONE 10 MG TABLET (UD) PO SCH (15:45)
== END 2017-04-20 15:24 | DRG 554 ==
LOC: JER 11:31 → JERBED 14:50 → OBSVTOIN 16:34 → J8W 20:35
PROVIDERS: ADMIT Internal Medicine; ATTEND Internal Medicine
DX: M10.9 Gout, unspecified (principal); N17.9 Acute kidney failure, unspecified; I12.9 Hypertensive chronic kidney disease with stage 1 through stage 4 chronic kidney disease, or unspecified chronic kidney disease; I25.10 Atherosclerotic heart disease of native coronary artery without angina pectoris; E78.5 Hyperlipidemia, unspecified; I25.2 Old myocardial infarction; E66.9 Obesity, unspecified; Z68.34 Body mass index [BMI] 34.0-34.9, adult; N18.3 Chronic kidney disease, stage 3 (moderate)
CPT/HCPCS: 36415; 80048; 80053; 81003; 81015; 82436; 82570; 83735; 84100; 84133; 84300; 84540; 84550; 85025; 85027; 85651; 86140; 87205; 93970-TC; 97116-GP; 97161-GP; 99284-25; G0378; J1644

== ENCOUNTER 2017-11-12 11:15 | Observation (INO) | payer OTHER ==
[2017-11-12 11:23] VITALS: BMI 34.2
[2017-11-12] MEDS ORDERED: ASPIRIN 81 MG CHEWABLE TABLETS PO ONE (11:44)
[2017-11-12] MEDS ORDERED: ACETAMINOPHEN 500 MG TABLET (FP) PO ONE (11:45)
--- NOTE | 2017-11-12 12:01 | PDOC ---
History of Present Illness - General Chief Complaint: Chest Pain Stated Complaint: CHEST PAIN Time Seen by Provider: 11/12/17 11:27 History Source: Patient Exam Limitations: No Limitations - History of Present Illness Initial Comments: 11/12/17 12:00 72-year-old female presents to ED with complaints of left-sided chest sharp aching pain worsened with deep breathing and movement but remained sutle at rest. Patient denies shortness of breath at rest, palpitations, nausea, sweating , fever, chills, or cough. Patient does have history of [place] and CAD. Patient took her morning baby aspirin, no nitroglycerin, and came to the ER when pain continued. Patient denies change in activity or recent travel. Patient denies calf pain or recent surgery. Patient also has history of gout but denies kidney disease Presenting Symptoms: Chest Pain Timing/Duration: reports: intermittent Severity/Quality: reports: moderate, pressure, sharp Location: reports: substernal Chest Pain Radiation: reports: no radiation Activities at Onset: reports: exertion Prior Chest Pain/Cardiac Workup: reports: Other Nitro Today/Relief: Yes: no nitro taken today Aspirin Received prior to arrival (Core Measure): Yes: 81 mg x 2, provided by ED (and one taken at home) Associated Symptoms: Yes: Chest Pain/pressure, Shortness of Breath Past History - Travel Traveled outside of the country in the last 30 days: No - Past Medical History Allergies/Adverse Reactions: Allergies Allergy/AdvReac Type Severity Reaction Status Date / Time No Known Allergies Allergy Verified 11/12/17 11:23 Home Medications: Ambulatory Orders Aspirin [ASA -] 81 mg PO DAILY 07/29/16 Atorvastatin Ca [Lipitor] 40 mg PO HS 07/29/16 Metoprolol Succinate [Toprol XL -] 100 mg PO BID 07/29/16 Nifedipine ER [Procardia XL -] 90 mg PO DAILY 07/29/16 Furosemide [Lasix -] 20 mg PO DAILY #30 tablet 07/30/16 Lisinopril/Hydrochlorothiazide [Lisinopril-Hctz 20-25 mg Tab] 20 - 25 mg PO DAILY 04/17/17 Allopurinol [Zyloprim -] 100 mg PO DAILY 11/12/17 Folic Acid - 1 mg PO DAILY 11/12/17 Nitroglycerin 0.4 mg SL PRN 11/12/17 Cardiac Disorders: Yes ([place] , CAD) COPD: No DVT: No HTN: Yes Hypercholesterolemia: Yes - Immunization History Immunization Up to Date: Yes - Suicide/Smoking/Psychosocial Hx Smoking History: Never smoked Have you smoked in the past 12 months: No Information on smoking cessation initiated: No Hx Alcohol Use: No Drug/Substance Use Hx: No Substance Use Type: None Hx Substance Use Treatment: No Patient Lives Alone: No Cardiac Specific PMH - Complaint Specific PMHX Myocardial Infarction: Yes Review of Systems - Review of Systems Able to Perform ROS?: No Constitutional: No: Symptoms Reported HEENTM: No: Symptoms Reported Respiratory: No: Symptoms reported Cardiac (ROS): Yes: Chest Pain ABD/GI: No: Symptoms Reported : No: Symptoms Reported Musculoskeletal: No: Symptoms Reported Integumentary: No: Symptoms Reported Neurological: No: Symptoms reported *Physical Exam - Vital Signs Last Vital Signs Temp Pulse Resp BP Pulse Ox 98.0 F 66 18 153/72 100 11/12/17 11:17 11/12/17 12:00 11/12/17 12:00 11/12/17 12:00 11/12/17 12:00 - Physical Exam General Appearance: Yes: Nourished, Appropriately Dressed. No: Apparent Distress Respiratory/Chest: positive: Chest Tender (mild left chest at the fourth fifth rib lateral of the midclavicular line), Lungs Clear, Normal Breath Sounds. negative: Respiratory Distress, Accessory Muscle Use Cardiovascular: positive: Regular Rhythm, Regular Rate. negative: Murmur Gastrointestinal/Abdominal: positive: Soft. negative: Tenderness Extremity: positive: Pedal Edema (2+ nonpitting bateral). negative: Calf Tenderness, Erythema Integumentary: positive: Normal Color, Warm, Moist. negative: Rash Neurologic: positive: Motor Strength 5/5 (ambulatory) Heart Score/ECG Review - History History: Slightly suspicious - Electrocardiogram EKG: Normal - Age Age: >/= 65 - Risk Factors Risk Factors Heart Score: Yes Hx Hypercholesterolemia, Yes Hx Hypertension Based on the list above the patient has:: 1-2 risk factors - Troponin Troponin: </= normal limit - Score Heart Score - Total: 3 - ECG Intrepretation Rhythm: Regular Rhythm (Rate 69. Normal sinus rhythm. Intervals are regular. No ST elevation or depression.) ED Treatment Course - LABORATORY CBC & Chemistry Diagram: 11/12/17 11:55 08/26/18 11:55 - ADDITIONAL ORDERS Additional order review: Laboratory Results 11/12/17 11/12/17 11/12/17 12:03 11:55 11:55 PT with INR 12.50 INR 1.11 H D-Dimer 920 H Sodium 142 Potassium 3.6 Chloride 103 Carbon Dioxide 25 Anion Gap 14 BUN 49 H Creatinine 2.7 H Creat Clearance w eGFR 17.23 Random Glucose 94 Calcium 9.8 Magnesium 2.9 H Total Bilirubin 0.4 AST 14 L ALT 14 Alkaline Phosphatase 163 H Creatine Kinase 50 Troponin I < 0.02 Total Protein 8.5 H Albumin 4.1 11/12/17 11:55 RBC 4.34 MCV 93.5 MCHC 32.5 RDW 13.4 MPV 9.9 Neutrophils % 66.3 Lymphocytes % 23.3 Monocytes % 7.1 Eosinophils % 1.6 D Basophils % 1.7 - RADIOLOGY Radiology Studies Ordered: Category Date Time Status CHEST - PA [RAD] Stat Radiology 11/12/17 11:27 Completed - Medications Given in the ED: ED Medications Discontinued Medications Generic Name Dose Route Start Last Admin Trade Name Freq PRN Reason Stop Dose Admin Acetaminophen 975 mg 11/12/17 11:45 11/12/17 12:07 Tylenol - PO 11/12/17 11:46 975 mg ONCE ONE Administration Aspirin 81 mg 11/12/17 11:44 11/12/17 12:07 Asa - PO 11/12/17 11:45 81 mg ONCE ONE Administration Medical Decision Making - Medical Decision Making 11/12/17 12:00 Patient with intermittent chest pain since yesterday describing sharp achiness with deep breathing and movement. On exam had mild reproducible pain to the left chest. Patient ordered for cardiac workup including an additional 81 mg of aspirin and Tylenol secondary to possible musculoskeletal pain. 11/12/17 12:20 Laboratory Tests 11/12/17 11:55 WBC 11.9 H Hgb 13.2 Hct 40.6 D Neutrophils % 66.3 11/12/17 13:13 Laboratory Tests 04/18/17 04/19/17 04/20/17 09:00 05:35 08:25 WBC Hgb Hct Plt Count Absolute Neuts (auto) Neutrophils % PT with INR INR D-Dimer BUN 28 H 18 17 Creatinine 0.8 0.9 Creat Clearance w eGFR Random Glucose Calcium Magnesium Total Bilirubin AST ALT Alkaline Phosphatase Creatine Kinase Troponin I Albumin 11/12/17 11/12/17 11/12/17 11:55 11:55 11:55 WBC 11.9 H Hgb 13.2 Hct 40.6 D Plt Count 260 Absolute Neuts (auto) 7.9 Neutrophils % 66.3 PT with INR INR D-Dimer 920 H BUN 49 H Creatinine 2.7 H Creat Clearance w eGFR 17.23 Random Glucose 94 Calcium 9.8 Magnesium 2.9 H Total Bilirubin 0.4 AST 14 L ALT 14 Alkaline Phosphatase 163 H Creatine Kinase 50 Troponin I < 0.02 Albumin 4.1 11/12/17 12:03 WBC Hgb Hct Plt Count Absolute Neuts (auto) Neutrophils % PT with INR 12.50 INR 1.11 H D-Dimer BUN Creatinine Creat Clearance w eGFR Random Glucose Calcium Magnesium Total Bilirubin AST ALT Alkaline Phosphatase Creatine Kinase Troponin I Albumin Patient concerning for PE. Patient ordered for a chest CTA to rule out pulmonary embolism. Patient also ordered for 1 L of normal saline secondary to elevation in BUN/creatinine. 11/12/17 13:35 CTA was reconsidered secondary to this versus benefits versus and low suspicion for PE based on patient's physical exam and complaints. Patient will be placed on anticoagulation therapy, heparin infusion and have VQ scan scheduled for tomorrow. Patient will receive IV fluids and have repeat chemistry. We will admit pt to the hospitalist service since patient's primary care physician Dr. Ovalles does not admit 11/12/17 14:06 11/12/17 14:07 Discussed with hospitalist and will admit to telemetry inpatient. *DC/Admit/Observation/Transfer Diagnosis at time of Disposition: SONALI (acute kidney injury), Chest pain, Elevated d-dimer - Discharge Dispostion Decision to Admit order: Yes - Referrals Referrals: Malachi Lancaster MD [Primary Care Provider] - - Patient Instructions - Post Discharge Activity
[2017-11-12] MEDS ORDERED: ACETAMINOPHEN 325 MG TABLET (FP) ONE (12:05)
[2017-11-12] MEDS ORDERED: ASPIRIN 81 MG CHEWABLE TABLETS ONE (12:05)
[2017-11-12 12:14] LABS: BASO % 1.7 % (0-2.0); EOS % 1.6 % (0-4.5); HEMATOCRIT 40.6 % (32.4-45.2); HEMOGLOBIN 13.2 GM/dL (10.7-15.3); LYMPH % 23.3 % (8-40); MCH 30.4 pg (25.7-33.7); MCHC 32.5 g/dl (32.0-36.0); MEAN CELL VOLUME 93.5 fl (80-96); MEAN PLT VOLUME 9.9 fl (7.5-11.1); MONO % 7.1 % (3.8-10.2); NEUT % 66.3 % (42.8-82.8); PLATELET COUNT 260 K/MM3 (134-434); RBC 4.34 M/mm3 (3.60-5.2); RDW 13.4 % (11.6-15.6); WHITE BLOOD COUNT 11.9 K/mm3 (4.0-10.0)
[2017-11-12 12:23] LABS: INR 1.11 (0.83-1.09); PROTHROMBIN TIME (PATIENT) 12.5 SEC (9.7-13.0)
[2017-11-12 12:33] LABS: ALBUMIN 4.1 g/dl (3.4-5.0); ANION GAP 14 MMOL/L (8-16); BILIRUBIN,TOTAL 0.4 mg/dL (0.2-1.0); BLOOD UREA NITROGEN 49 mg/dL (7-18); CALCIUM 9.8 mg/dL (8.5-10.1); CHLORIDE 103 mmol/L (98-107); CO2 25 mmol/L (21-32); CREATININE 2.7 mg/dL (0.55-1.02); GLUCOSE,RANDOM 94 mg/dL (74-106); MAGNESIUM 2.9 mg/dL (1.8-2.4); POTASSIUM 3.6 mmol/L (3.5-5.1); SGOT/AST 14 U/L (15-37); SGPT/ALT 14 U/L (12-78); SODIUM 142 mmol/L (136-145); TOT PROT 8.5 g/dl (6.4-8.2)
[2017-11-12 12:36] LABS: ALK PHOS 163 U/L (45-117)
[2017-11-12] MEDS ORDERED: SODIUM CHLORIDE 1,000 ML IV STA (13:12)
[2017-11-12] MEDS ORDERED: HEPARIN NA (PORCINE) 5,000 UNITS/ML 1ML VIAL IV ONE (13:33)
[2017-11-12] MEDS ORDERED: HEPARIN INFUSION - 25,000 UNITS/500 ML INFUS.BAG IVPB SCH (13:45)
[2017-11-12] MEDS ORDERED: HEPARIN INFUSION - 25,000 UNITS/500 ML INFUS.BAG IVPB ONE (13:49)
[2017-11-12] MEDS ORDERED: HEPARIN NA (PORCINE) 5,000 UNITS/ML 1ML VIAL ONE (13:49)
[2017-11-12] MEDS ORDERED: morphine CARPU-JECT 2 MG/1 ML DISP.SYRIN IVPUSH ONE (14:18)
[2017-11-12 14:20] LABS: URINE APPEARANCE SLCLOUDY; URINE BILIRUBIN NEGATIVE (<2.0 mg/dL); URINE COLOR YELLOW; URINE GLUCOSE (UA) NEGATIVE (NEGATIVE); URINE KETONE NEGATIVE (NEGATIVE); URINE NITRITE NEGATIVE (NEGATIVE); URINE PROTEIN NEGATIVE (NEGATIVE); URINE UROBILINOGEN NEGATIVE mg/dL (0.2-1.0)
[2017-11-12 14:23] LABS: URINE LEUK ESTERASE 1+ (NEGATIVE)
[2017-11-12 14:25] LABS: EPI CELLS RARE /HPF (FEW); URINE BACTERIA RARE /hpf (NONE SEEN); URINE HYALINE CAST 49 /lpf; URINE MUCUS RARE
[2017-11-12] MEDS ORDERED: MORPHINE SULFATE 2 MG/ML VIAL ONE (15:29)
--- NOTE | 2017-11-12 16:36 | HP ---
CHIEF COMPLAINT: Chest Pain PCP: Dr. Florez HISTORY OF PRESENT ILLNESS: 72 y/o F with a PMHx of NH/CAD, HTN, HLD, SONALI, and Gout presents with Left sided chest pressure/tightness for the past 2 days. Has had an NH in the past that felt more like heart burn, much different from the discomfort shes experiencing today. The discomfort came on all of sudden when the she was getting up. This is the first episode shes had of sharp pain that came on with movement of her torso or left arm. It is constant, 5/10, does not radiate anywhere and worsens with deep breaths and movements. She took one baby aspirin at home with no relief and then decided to visit the ED. She was given an additional baby aspirin and Tylenol in the ED which have provided minimal relief. Denies any recent excessive NSAID use, travel, medication changes. Denies numbness, tingling weakness, Palpitations, SOB, fevers, chills, nausea, vomiting, diarrhea, constipation. ER course was notable for: (1) ASA, Tylenol, 1L NS Bolus, Heparin Drip (2) WBC 11.9, D-Dimer 920, BUN 49, Cr 2.7, Trop <0.02 (3) EKG, CXR Recent Travel: Denies PAST MEDICAL HISTORY: - NH/CAD (1982, unclear if stents were placed) - HTN - HLD - SONALI - Gout PAST SURGICAL HISTORY: Denies Social History: Smokin ppd for years, quit in 1982 Alcohol: Socially Drugs: Denies Family History: HTN Allergies No Known Allergies Allergy (Verified 11/12/17 11:23) HOME MEDICATIONS: Aspirin [ASA -] 81 mg PO DAILY 07/29/16 Atorvastatin Ca [Lipitor] 40 mg PO HS 07/29/16 Metoprolol Succinate [Toprol XL -] 100 mg PO BID 07/29/16 Nifedipine ER [Procardia XL -] 90 mg PO DAILY 07/29/16 Allopurinol [Zyloprim -] 100 mg PO DAILY 11/12/17 Cholecalciferol (Vitamin D3) [Vitamin D3] 50,000 unit PO WEEKLY 11/12/17 Folic Acid - 1 mg PO DAILY 11/12/17 Nitroglycerin 0.4 mg SL PRN 11/12/17 Potassium Chloride [Klor-Con M20] 20 meq PO DAILY 11/12/17 REVIEW OF SYSTEMS CONSTITUTIONAL: Absent: fever, chills, diaphoresis, generalized weakness, malaise, loss of appetite, weight change HEENT: Absent: rhinorrhea, nasal congestion, throat pain, throat swelling, difficulty swallowing, mouth swelling, ear pain, eye pain, visual changes CARDIOVASCULAR: Present: Chest Pressure/Tightness Absent: chest pain, syncope, palpitations, irregular heart rate, lightheadedness , peripheral edema RESPIRATORY: Absent: cough, shortness of breath, dyspnea with exertion, orthopnea, wheezing, stridor, hemoptysis GASTROINTESTINAL: Absent: abdominal pain, abdominal distension, nausea, vomiting, diarrhea, constipation, melena, hematochezia GENITOURINARY: Absent: dysuria, frequency, urgency, hesitancy, hematuria, flank pain, genital pain MUSCULOSKELETAL: Absent: myalgia, arthralgia, joint swelling, back pain, neck pain SKIN: Absent: rash, itching, pallor HEMATOLOGIC/IMMUNOLOGIC: Absent: easy bleeding, easy bruising, lymphadenopathy, frequent infections ENDOCRINE: Absent: unexplained weight gain, unexplained weight loss, heat intolerance, cold intolerance NEUROLOGIC: Absent: headache, focal weakness or paresthesias, dizziness, unsteady gait, seizure, mental status changes, bladder or bowel incontinence PSYCHIATRIC: Absent: anxiety, depression, suicidal or homicidal ideation, hallucinations. PHYSICAL EXAMINATION Vital Signs - 24 hr 11/12/17 11/12/17 11:17 12:00 Temperature 98.0 F Pulse Rate 75 Pulse Rate [ 66 Left Radial] Respiratory 16 18 Rate Blood Pressure 133/66 Blood Pressure 153/72 [Right Arm] O2 Sat by Pulse 100 100 Oximetry (%) GENERAL: Awake, alert, and fully oriented, in no acute distress. EYES: PERRL, EOMI, THROAT: Oropharynx clear without exudates. Moist mucous membranes. NECK: Supple, No JVD, No Carotid bruits appreciated, Difficulty with Left sided rotation as it exacerbates chest pain, All other ROM intact LUNGS: Breath sounds equal, clear to auscultation bilaterally. No wheezes. HEART: Regular rate and rhythm, normal S1 and S2 without murmur. CHEST: Tender to palpation at the Left 4th-5th Intercostal space, lateral to the midclavicular line ABDOMEN: Soft, nontender, not distended, normoactive bowel sounds, no guarding, no rebound. MUSCULOSKELETAL: No CVA tenderness. EXTREMITIES: 2+ pulses, No calf tenderness. Trace edema. NEUROLOGICAL: Cranial nerves II-XII grossly intact. Normal speech. PSYCHIATRIC: Cooperative. Good eye contact. Appropriate mood and affect. SKIN: Warm, dry, no rashes or lesions noted. Laboratory Results - last 24 hr 11/12/17 11/12/17 11/12/17 11:55 11:55 11:55 WBC 11.9 H RBC 4.34 Hgb 13.2 Hct 40.6 D MCV 93.5 MCH 30.4 MCHC 32.5 RDW 13.4 Plt Count 260 MPV 9.9 Absolute Neuts (auto) 7.9 Neutrophils % 66.3 Lymphocytes % 23.3 Monocytes % 7.1 Eosinophils % 1.6 D Basophils % 1.7 Nucleated RBC % 0 PT with INR INR PTT (Actin FS) D-Dimer 920 H Sodium 142 Potassium 3.6 Chloride 103 Carbon Dioxide 25 Anion Gap 14 BUN 49 H Creatinine 2.7 H Creat Clearance w eGFR 17.23 Random Glucose 94 Calcium 9.8 Magnesium 2.9 H Total Bilirubin 0.4 AST 14 L ALT 14 Alkaline Phosphatase 163 H Creatine Kinase 50 Troponin I < 0.02 Total Protein 8.5 H Albumin 4.1 Urine Color Urine Appearance Urine pH Ur Specific [place] Urine Protein Urine Glucose (UA) Urine Ketones Urine Blood Urine Nitrite Urine Bilirubin Urine Urobilinogen Ur Leukocyte Esterase Urine WBC (Auto) Urine RBC (Auto) Ur Epithelial Cells Urine Bacteria Hyaline Casts Urine Mucus 11/12/17 11/12/17 11/12/17 12:03 14:00 14:00 WBC RBC Hgb Hct MCV MCH MCHC RDW Plt Count MPV Absolute Neuts (auto) Neutrophils % Lymphocytes % Monocytes % Eosinophils % Basophils % Nucleated RBC % PT with INR 12.50 INR 1.11 H PTT (Actin FS) 32.9 D-Dimer Sodium Potassium Chloride Carbon Dioxide Anion Gap BUN Creatinine Creat Clearance w eGFR Random Glucose Calcium Magnesium Total Bilirubin AST ALT Alkaline Phosphatase Creatine Kinase Troponin I Total Protein Albumin Urine Color Yellow Urine Appearance Slcloudy Urine pH 5.0 Ur Specific [place] 1.014 Urine Protein Negative Urine Glucose (UA) Negative Urine Ketones Negative Urine Blood Negative Urine Nitrite Negative Urine Bilirubin Negative Urine Urobilinogen Negative Ur Leukocyte Esterase 1+ H Urine WBC (Auto) 15 Urine RBC (Auto) 1 Ur Epithelial Cells Rare Urine Bacteria Rare Hyaline Casts 49 Urine Mucus Rare Active Medications Heparin Sodium (Porcine) (Heparin -) 5,000 unit SQ Q8H-IV TIMOTEO IMAGING: - CXR: No acute change since prior study of 07/29/2016. - EKG: NSR ASSESSMENT/PLAN: 72 y/o F with a PMHx of NH/CAD, HTN, HLD, SONALI, and Gout presents with Left sided chest pressure/tightness is observed to R/O Pulmonary Embolism and SONALI. 1. R/O PE - patient complains of Left sided chest pressure/tightness, constant, 5/10, does not radiate anywhere and worsens with deep breaths and movement of her torso or left arm. - HR 66-71, O2 Sats 99-100% - No Unilateral Leg swelling, No Hemoptysis - Denies Palpitations, SOB - No Recent surgery/trauma, hormone use, travel, medication changes. - D-Dimer 920 - Pulmonary (Dr. De Leon) Consulted for possible V/Q Scan tomorrow - Ordered DUPLEX Both Lower extremity - Heparin Drip Started in the ED; Held for now as PE suspicion is low 2. SONALI - BUN 49, Cr 2.7; Was 17-18/0.8-0.9 on previous admissions - Denies dysuria, hematuria, urinary urgency, frequency - UA: 1+ Leukocyte Esterase, 15 WBC - 1L NS Bolus given in the ED - Urine Electrolytes ordered - Renal/Kidney Ultrasound ordered - Can consider Nephrology consult if no improvement 3. R/O ACS - EKG: NSR - Troponin < 0.02 x1, Repeat ordered 4. HTN - BP 148-153/72-89 - Continue Home dose Nifedipine ER, Toprol XL - Meds Rec'ed, Lasix and HCTZ/Lisinopril have been D/C'ed since 09/08/17 5. Hx of NH/CAD - Continue Home dose Nitroglycerin (PRN), Aspirin 6. HLD - Continue Home dose Lipitor 7. Gout - Continue Home dose Allopurinol 8. FEN - PO Fluids - Lytes WNL - Sodium Controlled Diet 9. PPx - DVT: Heparin Dispo: Obs Visit type - Emergency Visit Emergency Visit: Yes ED Registration Date: 11/12/17 Care time: The patient presented to the Emergency Department on the above date and was hospitalized for further evaluation of their emergent condition. - New Patient This patient is new to me today: Yes Date on this admission: 11/12/17 - Critical Care Critical Care patient: No Hospitalist Screening - Colonoscopy Questionnaire Colonoscopy Questionnaire: Colonoscopy Questionnaire - Patient: 50 - 75 years old and never had a screening colonoscopy: Unknown History of colon or rectal polyps, or CA: Unknown History of IBD, Crohn's disease or UC: Unknown History of abdominal radiation therapy as a child: Unknown - Relative: 1 with colon or rectal CA, or polyps at age 60 or younger: Unknown Colon or rectal CA diagnosed at age 45 or younger: Unknown Multiple relatives with colon or rectal CA: Unknown - Outcome: Screening Result: Negative Screen
--- NOTE | 2017-11-12 16:56 | PN ---
<Vahe Sweet - Last Filed: 11/13/17 11:16> Teaching Attending Note ATTENDING PHYSICIAN STATEMENT I saw and evaluated the patient. I reviewed the resident's note and discussed the case with the resident. I agree with the resident's findings and plan as documented. SUBJECTIVE: OBJECTIVE: ASSESSMENT AND PLAN: <Ev Singh - Last Filed: 11/13/17 12:33> Teaching Attending Note Name of Resident: Rasheeda Loya ATTENDING PHYSICIAN STATEMENT I saw and evaluated the patient. I reviewed the resident's note and discussed the case with the resident. I agree with the resident's findings and plan as documented. SUBJECTIVE:72yo F with PMH gout, HTN, dsylipidemia and TN (1982) presented to the ER with L sided CP x 2days. sudden onset, 5/10, non-radiating. worse on deep inspiration or movement of her L arm. no relief with 2 baby asa. denies fever, chills, cough, hemoptysis, N/V/C/D no recent travel, no leg swelling, no recent surgeries OBJECTIVE: Last Vital Signs Temp Pulse Resp BP Pulse Ox 98.0 F 71 18 148/89 100 11/12/17 15:32 11/12/17 15:32 11/12/17 15:32 11/12/17 15:32 11/12/17 15:32 multiple attempts made to evaluate patient however was in testing ASSESSMENT AND PLAN: 72yo F with PMH gout, HTN, dsylipidemia and TN (1982) presented to the ER with L sided CP x 2days 1. Typical CP- tele observation. continuous cardiac monitoring. trend cardiac enzymes Q6H. echo. cont asa 2. Elevated d-dimer- low suspicion for PE. PERC <1. unable to do CTA due to renal function. will check doppler of legs. conisder VQ scan. consult pulm. will d/c hep ggt started in the ER as pt is low risk 3. SONALI- medication induced? check FEurea (pt is on lasix). check renal/bladder u /s. IVF. will consider nephrology eval if does not improve. hold lasix/ allopurinol 4. HTN- Controlled. monitor while lasix on hold 5. dyslipidemia- statin
[2017-11-12] MEDS ORDERED: HEPARIN NA (PORCINE) 5,000 UNITS/ML 1ML VIAL SQ SCH (18:00)
[2017-11-12] MEDS: HEPARIN NA (PORCINE) 5,000 UNITS/ML 1ML VIAL SQ SCH (21:29)
[2017-11-12] MEDS ORDERED: ACETAMINOPHEN 325 MG TABLET (FP) PO ONE (21:46)
--- NOTE | 2017-11-12 21:54 | EKG ---
Test Reason : Blood Pressure : / mmHG Vent. Rate : 069 BPM Atrial Rate : 069 BPM P-R Int : 168 ms QRS Dur : 106 ms QT Int : 424 ms P-R-T Axes : 064 013 021 degrees QTc Int : 454 ms NORMAL SINUS RHYTHM NORMAL ECG WHEN COMPARED WITH ECG OF 29-JUL-2016 15:41, NO SIGNIFICANT CHANGE WAS FOUND Confirmed by HUMBERTO SHERMAN MD ([id number]) on 11/12/2017 9:53:59 PM Referred By: Confirmed By:HUMBERTO SHERMAN MD
[2017-11-13] MEDS: HEPARIN NA (PORCINE) 5,000 UNITS/ML 1ML VIAL SQ SCH ×3 (06:19→21:26)
[2017-11-13 07:55] LABS: BASO % 1.3 % (0-2.0); EOS % 2.2 % (0-4.5); HEMATOCRIT 38.3 % (32.4-45.2); HEMOGLOBIN 12.3 GM/dL (10.7-15.3); LYMPH % 32.1 % (8-40); MCH 30.3 pg (25.7-33.7); MCHC 32.1 g/dl (32.0-36.0); MEAN CELL VOLUME 94.4 fl (80-96); MEAN PLT VOLUME 10.8 fl (7.5-11.1); MONO % 8.3 % (3.8-10.2); NEUT % 56.1 % (42.8-82.8); PLATELET COUNT 224 K/MM3 (134-434); RBC 4.05 M/mm3 (3.60-5.2); RDW 13.5 % (11.6-15.6); WHITE BLOOD COUNT 8.1 K/mm3 (4.0-10.0)
[2017-11-13 08:10] LABS: ALBUMIN 3.5 g/dl (3.4-5.0); ANION GAP 9 MMOL/L (8-16); BILIRUBIN,TOTAL 0.3 mg/dL (0.2-1.0); BLOOD UREA NITROGEN 42 mg/dL (7-18); CALCIUM 9.4 mg/dL (8.5-10.1); CHLORIDE 104 mmol/L (98-107); CO2 30 mmol/L (21-32); CREATININE 1.8 mg/dL (0.55-1.02); GLUCOSE,RANDOM 84 mg/dL (74-106); MAGNESIUM 2.7 mg/dL (1.8-2.4); PHOSPHOROUS 3.9 mg/dL (2.5-4.9); POTASSIUM 3.6 mmol/L (3.5-5.1); SGOT/AST 12 U/L (15-37); SGPT/ALT 13 U/L (12-78); SODIUM 143 mmol/L (136-145); TOT PROT 7.7 g/dl (6.4-8.2)
[2017-11-13 08:11] LABS: ALK PHOS 149 U/L (45-117)
[2017-11-13] MEDS ORDERED: PATIENT'S OWN MEDICATION (NON-FORMULARY) (Cholecalciferol (Vitamin D3) [Vitamin D3] 50,000 PO SCH (08:30)
[2017-11-13] MEDS ORDERED: NITROGLYCERIN SUBLINGUAL 1/150 0.4 MG TAB SL SCH (08:30)
[2017-11-13] MEDS: NIFEdipine E.R. 90 MG TABLET (FP) PO SCH (09:15)
[2017-11-13] MEDS: ASPIRIN 81 MG CHEWABLE TABLETS PO SCH (09:15)
[2017-11-13] MEDS: POTASSIUM CHLORIDE TABS 20 MEQ TABLET.ER (FP) PO SCH (09:15)
[2017-11-13] MEDS: FOLIC ACID 1 MG TABLET (FP) PO SCH (09:15)
[2017-11-13] MEDS ORDERED: ALLOPURINOL 100 MG TABLET (FP) PO SCH (10:00)
[2017-11-13] MEDS ORDERED: FUROSEMIDE 20 MG TABLET (FP) PO SCH (10:00)
[2017-11-13] MEDS ORDERED: PATIENT'S OWN MEDICATION (NON-FORMULARY) (Lisinopril/Hydrochlorothiazide [Lisinopril-Hctz PO SCH (10:00)
--- NOTE | 2017-11-13 11:26 | PN ---
Progress Note (short form) - Note Progress Note: PULMONARY CONSULTATION DICTATED 11/13/17 IMP CHEST PAIN DOUBT PE BUT CANNOT COMPLETELY EXCLUDE PT AT INCREASE RISK OBESE ,RELATIVELY SEDENTARY,R/O MUSCULOSKELETAL,INFLAMMATORY,? CARDIAC ASHD S/P [place] ACUTE ON CKD GOUT HTN HLD PLAN V/Q ESR ECHO MONITOR ILANA SMITH Problem List - Problems (1) SONALI (acute kidney injury) Code(s): N17.9 - ACUTE KIDNEY FAILURE, UNSPECIFIED (2) Chest pain Code(s): R07.9 - CHEST PAIN, UNSPECIFIED (3) Elevated d-dimer Code(s): R79.89 - OTHER SPECIFIED ABNORMAL FINDINGS OF BLOOD CHEMISTRY (4) Atypical chest pain Code(s): R07.89 - OTHER CHEST PAIN (5) Coronary artery disease Code(s): I25.10 - ATHSCL HEART DISEASE OF [place] CORONARY ARTERY W/O ANG PCTRS (6) HLD (hyperlipidemia) Code(s): E78.5 - HYPERLIPIDEMIA, UNSPECIFIED (7) HTN (hypertension) Code(s): I10 - ESSENTIAL (PRIMARY) HYPERTENSION
[2017-11-13] MEDS ORDERED: SODIUM CHLORIDE 1,000 ML IV SCH (12:15)
--- NOTE | 2017-11-13 12:38 | PN ---
Teaching Attending Note Name of Resident: Kumar Cazares ATTENDING PHYSICIAN STATEMENT I saw and evaluated the patient. I reviewed the resident's note and discussed the case with the resident. I agree with the resident's findings and plan as documented. SUBJECTIVE:CP has improved. worse on movement. no recent changes to medication. denies CP,SOB, fever, chills, N/V/C/D had stress test in past year reports as negative OBJECTIVE: Last Vital Signs Temp Pulse Resp BP Pulse Ox 98.5 F 68 18 154/69 96 11/13/17 08:44 11/13/17 08:44 11/13/17 08:44 11/13/17 08:44 11/13/17 07:00 General NAD CV S1 S2 RRR +L sided reproducible pain Lungs CTA B/L no wheezing/rlaes/rhonchi ASSESSMENT AND PLAN: 72yo F with PMH gout, HTN, dsylipidemia and [place] (1982) presented to the ER with L sided CP x 2days 1. Typical CP-seems musculoskeletal in nature. CE neg x2 no events on tele monitor. will call bar supervisor to obtain recent stress test results. echo. cont asa 2. Elevated d-dimer- low suspicion for PE. PERC <1. unable to do CTA due to renal function. doppler negative. as per pulm will do VQ scan to r/o PE. would hold anticoagulation at this time. 3. SONALI- medication induced? trending down. renal u/s showing chronic disease. will call PMD to obtain baseline renal function. 4. HTN- Controlled. monitor while lasix on hold 5. dyslipidemia- statin 6. d/c today pending VQ scan
--- NOTE | 2017-11-13 13:27 | CONS ---
DATE OF CONSULTATION: 11/13/2017 REFERRING PHYSICIAN: Ev Singh MD The patient is a 72-year-old black female with a past medical history of hypertension, ASHD, status post OK in 1982, obesity, gout, hypertension, hyperlipidemia, presented to [facility] with complaint of 2-day history of left-sided chest pain. Patient states that she woke up 2 days prior to admission, got out of bed, started developing sharp pain. She states that the pain radiated to her left side, increased with movement as well as inspiration. She denied any cough, hemoptysis. Denied any fevers or chills. Her pain was persistent, at which time she presented to the emergency room. In the ER, she underwent a D-dimer, which is mildly elevated, over 900. She underwent a duplex of the lower extremities, which revealed no evidence of DVT. The patient denies any history of DVT or PE in the past. There is no history of recent travel. She denies any lower extremity edema or recent surgeries. There is no family history of pulmonary emboli. She states that she is not overly active but does ambulate/walk around the house. She denies any hemoptysis. Denies any cough or fevers or chills. Past medical history, again, includes hypertension, hyperlipidemia, ASHD, status post [place]. REVIEW OF SYSTEMS: No orthopnea, no PND. Positive chest pain, sharp in character, with increase with movement as well as inspiration. No abdominal pains. No hemoptysis, no cough, no lower extremity edema. Current medications include heparin subcutaneous 5000 t.i.d., Toprol, Procardia, Zyloprim, Lipitor, Nitrostat, K-Dur, and folic acid. PHYSICAL EXAMINATION: General: The patient is an obese female, well developed, awake, alert, in no acute distress. Vital Signs: She is afebrile. Blood pressure is 154/69. Respiratory rate 18. O2 saturation is 96% on room air. HEENT: Normocephalic, atraumatic. Neck: Supple. Heart: Regular, S1, S2. Chest: Clear. Abdomen: Soft. Bowel sounds positive. Extremities: No cyanosis, edema. LABORATORY DATA: D-dimer is 920, BUN 42, creatinine 1.8. WBC is 8.1, hemoglobin 12.3, hematocrit 38.3, platelet count of 224,000. Vascular study, duplex: No evidence of DVT. Renal ultrasound suspicious of possible medical renal parenchymal disease. IMPRESSION: Chest pain syndrome with elevated D-dimer. Cannot exclude pulmonary embolism but low probability of pulmonary embolism. IMPRESSION: 1. Chest pain, etiology to be determined. Doubt pulmonary embolism, but cannot completely exclude. Patient at increased risk (age, relatively sedentary lifestyle, and obesity). 2. Rule out possible pleurisy versus musculoskeletal etiology. 3. Acute on chronic kidney disease. 4. History of gout. 5. Hypertension. 6. Arteriosclerotic heart disease, status post myocardial infarction. PLAN: Ventilation-perfusion lung scan, cardiac enzymes, trend troponins, and echocardiogram. TERESA SMITH M.D. JOSE LUIS/[id number]
--- NOTE | 2017-11-13 14:44 | CON.CARD ---
Consult Consult Specialty:: Cardiology Referred by:: Hospitalist Medicine Reason for Consultation:: Atypical chest pain - History of Present Illness Chief Complaint: Chest pain History of Present Illness: The patient is a 72 year old female, with a significant past medical history of CAD s/p NV, PCI/stent (1982), hypertension, and hyperlipidemia, last seen in office March 2017, who presented to the emergency department complaining of left-sided, reproducible, pleuritic, non-exertional CP x 2days. sudden onset, 5 /10, non-radiating. worse on deep inspiration or movement of her L arm. She reports chronic dyspnea on exertion with climbing inclines, but denies any palpitations, near or true syncope, orthopnea, PND or LE edema. Allergies: None reported. Past Surgical History: Hysterectomy Social History: Former smoker. Denies alcohol or drug use. PCP: Dr. Mayda Holly - History Source History Provided By: Patient Limitations to Obtaining History: No Limitations - Past Medical History Cardio/Vascular: Yes: CAD, HTN, NV - Past Surgical History Past Surgical History: Yes: Stent - Alcohol/Substance Use Hx Alcohol Use: No - Smoking History Smoking history: Never smoked Have you smoked in the past 12 months: No Home Medications - Allergies Allergies/Adverse Reactions: Allergies Allergy/AdvReac Type Severity Reaction Status Date / Time No Known Allergies Allergy Verified 11/12/17 11:23 - Home Medications Home Medications: Ambulatory Orders RX: Aspirin [ASA -] 81 mg PO DAILY 07/29/16 RX: Atorvastatin Ca [Lipitor] 40 mg PO HS 07/29/16 RX: Metoprolol Succinate [Toprol XL -] 200 mg PO DAILY 07/29/16 RX: Nifedipine ER [Procardia XL -] 90 mg PO DAILY 07/29/16 Allopurinol [Zyloprim -] 100 mg PO DAILY 11/12/17 Furosemide [Lasix] 20 mg PO DAILY 11/12/17 Lisinopril/Hydrochlorothiazide [Lisinopril-Hctz 20-25 mg Tab] 1 each PO DAILY Potassium Chloride [Klor-Con M20] 20 meq PO DAILY 11/12/17 RX: Folic Acid - 1 mg PO DAILY 11/12/17 RX: Nitroglycerin 0.4 mg SL PRN 11/12/17 Ergocalciferol [Vitamin D2] 50,000 unit PO Q7D@1000 11/13/17 Review of Systems - Review of Systems Cardiovascular: reports: Chest Pain Vital Signs: Vital Signs Temperature 98.5 F 11/13/17 08:44 Pulse Rate 68 11/13/17 08:44 Respiratory Rate 18 11/13/17 08:44 Blood Pressure 154/69 11/13/17 08:44 O2 Sat by Pulse Oximetry (%) 96 11/13/17 07:00 Constitutional: Yes: No Distress, Calm Neck: Yes: Supple Respiratory: Yes: Regular, CTA Bilaterally Gastrointestinal: Yes: Normal Bowel Sounds, Soft Cardiovascular: Yes: Regular Rate and Rhythm JVD: No Carotid Bruit: No Heart Sounds: Yes: S1, S2 Murmur: Yes: Systolic Murmur, Grade 1 Edema: No - Other Data Labs, Other Data: CBC, BMP 11/13/17 06:00 11/13/17 06:00 INR, PTT INR 1.11 (0.83-1.09) H 11/12/17 12:03 Troponin, BNP 11/12/17 19:35 Troponin I < 0.02 Troponin, BNP 11/12/17 19:35 Troponin I < 0.02 NSR normal ECG Prior Cardiac Procedures: PTCA with Stent Problem List - Problems (1) Oskbx-vt-lnfoito kidney injury Code(s): N17.9 - ACUTE KIDNEY FAILURE, UNSPECIFIED; N18.9 - CHRONIC KIDNEY DISEASE, UNSPECIFIED (2) Atypical chest pain Code(s): R07.89 - OTHER CHEST PAIN (3) Coronary artery disease Code(s): I25.10 - ATHSCL HEART DISEASE OF [place] CORONARY ARTERY W/O ANG PCTRS Qualifiers: Coronary Disease-Associated Artery/Lesion type: [place] artery [place] vs. transplanted heart: [place] heart Associated angina: without angina Qualified Code(s): I25.10 - Atherosclerotic heart disease of [place] coronary artery without angina pectoris (4) H/O percutaneous transluminal coronary angioplasty Code(s): Z98.61 - CORONARY ANGIOPLASTY STATUS (5) Hyperlipidemia Code(s): E78.5 - HYPERLIPIDEMIA, UNSPECIFIED Qualifiers: Hyperlipidemia type: pure hypercholesterolemia Qualified Code(s): E78.00 - Pure hypercholesterolemia, unspecified (6) Hypertensive cardiomyopathy Code(s): I11.9 - HYPERTENSIVE HEART DISEASE WITHOUT HEART FAILURE; I43 - CARDIOMYOPATHY IN DISEASES CLASSIFIED ELSEWHERE Qualifiers: Heart failure presence: without heart failure Qualified Code(s): I11.9 - Hypertensive heart disease without heart failure (7) Old myocardial infarct Code(s): I25.2 - OLD MYOCARDIAL INFARCTION Assessment/Plan 07/2016 Regadenoson Myoview: No ischemia, LVEF 76% 07/29/2016 Echo: Normal LV size and fxn, mild TR, tr-mild MR 1. Atypical chest pain musculoskeletal in etiology 2. CAD h/o NV, PTCA 3. HTN/HCVD 4. Hyperlipidemia 5. Acute on CKD improving P:1. Ruled out for NV, IVF with monitor renal recovery 2. Continue ASA 81 qd, Lipitor 40 qhs, Toprol XL 100 bid, Procardia XL 90 qd. Holding Lasix 20 qd and Zesteretic 20/25 qd pending renal recovery. 3. F/u V/Q scan results 4. Thank you for consultative opportunity, patient may f/u with Dr. Ramirez in office [phone]
--- NOTE | 2017-11-13 15:32 | PN ---
Physical Exam: SUBJECTIVE: Patient seen and examined at bedside. No acute events. Pt continues to complain of L shoulder/chest pain worsened by movement of trunk/arm. Pain is slightly better than before. She also continues to have L great toe pain. OBJECTIVE: Vital Signs Period Temp Pulse Resp BP Sys/Gilbert Pulse Ox Last 24 Hr 97.9 F-98.5 F 58-88 16-20 121-154/61-89 94-100 Gen: NAD lying in bed. HEENT: NCAT, EOMI, moist membranes Neck: supple no jvd Cardio: rrr, normal s1s2, no mrg Pulm: cta b/l Abd: nondistended, + BS, soft, nontender Ext: R 1st MCP tender to palpation. No erythema, no swelling. 2+ pulses Laboratory Results - last 24 hr 11/12/17 11/12/17 11/13/17 17:20 19:35 06:00 WBC 8.1 RBC 4.05 Hgb 12.3 Hct 38.3 MCV 94.4 MCH 30.3 MCHC 32.1 RDW 13.5 Plt Count 224 MPV 10.8 Absolute Neuts (auto) 4.6 Neutrophils % 56.1 Lymphocytes % 32.1 D Monocytes % 8.3 Eosinophils % 2.2 Basophils % 1.3 Nucleated RBC % 0 Sodium Potassium Chloride Carbon Dioxide Anion Gap BUN Creatinine Creat Clearance w eGFR Random Glucose Calcium Phosphorus Magnesium Total Bilirubin AST ALT Alkaline Phosphatase Troponin I < 0.02 Total Protein Albumin Ur Random Sodium 88 Ur Random Potassium 28.4 Ur Random Chloride 105 11/13/17 06:00 WBC RBC Hgb Hct MCV MCH MCHC RDW Plt Count MPV Absolute Neuts (auto) Neutrophils % Lymphocytes % Monocytes % Eosinophils % Basophils % Nucleated RBC % Sodium 143 Potassium 3.6 Chloride 104 Carbon Dioxide 30 Anion Gap 9 BUN 42 H Creatinine 1.8 H Creat Clearance w eGFR 27.50 Random Glucose 84 Calcium 9.4 Phosphorus 3.9 Magnesium 2.7 H Total Bilirubin 0.3 AST 12 L ALT 13 Alkaline Phosphatase 149 H D Troponin I Total Protein 7.7 Albumin 3.5 Ur Random Sodium Ur Random Potassium Ur Random Chloride Active Medications Generic Name Dose Route Start Last Admin Trade Name Freq PRN Reason Stop Dose Admin Allopurinol 100 mg 11/13/17 10:00 11/13/17 09:15 Zyloprim - PO 100 mg DAILY TIM[facility] Administration Aspirin 81 mg 11/13/17 10:00 11/13/17 09:15 Asa - PO 81 mg DAILY [facility] Administration Atorvastatin Calcium 40 mg 11/13/17 22:00 Lipitor - PO HS TIMOTEO Folic Acid 1 mg 11/13/17 10:00 11/13/17 09:15 Folic Acid - PO 1 mg DAILY [facility] Administration Heparin Sodium (Porcine) 5,000 unit 11/12/17 20:28 11/13/17 14:19 Heparin - SQ 5,000 unit TID [facility] Administration Sodium Chloride 1,000 mls @ 75 mls/hr 11/13/17 12:15 11/13/17 14:29 Normal Saline - IV 75 mls/hr ASDIR [facility] Administration Metoprolol Succinate 200 mg 11/13/17 10:00 11/13/17 09:14 Toprol Xl - PO 200 mg DAILY TIM[facility] Administration Nifedipine 90 mg 11/13/17 10:00 11/13/17 09:15 Procardia Xl - PO 90 mg DAILY [facility] Administration Nitroglycerin 0.4 mg 11/13/17 08:30 Nitrostat - SL PRN [facility] Non-Formulary Medication 50,000 unit 11/13/17 08:30 Cholecalciferol (Vitamin D3) [Vitamin D3] PO Mo [facility] Potassium Chloride 20 meq 11/13/17 10:00 11/13/17 09:15 K-Dur - PO 20 meq DAILY [facility] Administration ASSESSMENT/PLAN: Pt is a 72 y/o F with PMH gout, HTN, dsylipidemia and OK (1982) presented to the ER with L sided CP x 2days. #CP, r/o ACS, r/o PE -reproducible, related to movement -d-dimer positive 920 -No CTA due to elevated Wood Model Maker -No ECG changes -No leg swelling. DVT negative -Tele monitoring -Trop neg x 2 -Known to [facility]. Follows with Dr. Ramirez -V/Q scan unremarkable -Pulm consulted #Gout -? gout flare -R 1st MCP pain -no swelling, redness -Tylenol #SONALI on ? CKD -Wood Model Maker 2.7 -> 1.8 -Unknown baseline -resolving -renal u/s showing a cyst and echogenic kidneys -Hold lasix, allopurinol #HTN -controlled with home Metoprolol #Hx ACS -had cath in 1982 -follows with Dr. Marvin Ramirez -had stress test in 2017 with good LV function and no ischemia -[facility] -c/w ASA, nitro prn #HLD -crestor #FEN -NS -lytes wnl -Na control diet #PPx -Hep SubQ #Dispo -Tele Kumar Cazares MD PGY-2, IM Visit type - Emergency Visit Emergency Visit: No - New Patient This patient is new to me today: No - Critical Care Critical Care patient: No - Discharge Referral Referred to [facility] No
[2017-11-13] MEDS: ACETAMINOPHEN 325 MG TABLET (FP) PO PRN ×2 (18:20→23:58)
[2017-11-13] MEDS ORDERED: ATORVASTATIN CA 40 MG TABLET (FP) PO SCH (22:00)
[2017-11-14] MEDS: HEPARIN NA (PORCINE) 5,000 UNITS/ML 1ML VIAL SQ SCH ×2 (06:03→14:08)
[2017-11-14 07:46] LABS: ANION GAP 8 MMOL/L (8-16); BLOOD UREA NITROGEN 24 mg/dL (7-18); CHLORIDE 105 mmol/L (98-107); CO2 30 mmol/L (21-32); CREATININE 1.1 mg/dL (0.55-1.02); GLUCOSE,RANDOM 85 mg/dL (74-106); POTASSIUM 3.7 mmol/L (3.5-5.1); SODIUM 143 mmol/L (136-145)
--- NOTE | 2017-11-14 07:59 | PN ---
Teaching Attending Note Name of Resident: Kenzie Arshad ATTENDING PHYSICIAN STATEMENT I saw and evaluated the patient. I reviewed the resident's note and discussed the case with the resident. I agree with the resident's findings and plan as documented with exceptions below. SUBJECTIVE: patient seen and examined. pain sole of right foot, for more than a week, ambulating inhouse. NO chest pain currently. OBJECTIVE: Vital Signs Period Temp Pulse Resp BP Sys/Gilbert Pulse Ox Last 24 Hr 98.2 F-99.3 F 66-76 18-20 129-158/62-80 96 Intake & Output 11/11/17 11/12/17 11/13/17 11/14/17 23:59 23:59 23:59 23:59 Intake Total 340 1350 1080 Balance 340 1350 1080 Weight 212 lb General: sitting in bed in no acute distress Chest: CTAB, no rales or wheezing Abdomen: soft, obese, NT throughout Extremities: focalized tenderness over distal medial sole of right foot, no swelling/erythema or induration noted, Right great toe normal with full ROM, no swelling/erythema or warmth noted over the toes, positive pulses Home Medications Medication Instructions Recorded Aspirin [ASA -] 81 mg PO DAILY 07/29/16 Atorvastatin Ca [Lipitor] 40 mg PO HS 07/29/16 Metoprolol Succinate [Toprol XL -] 200 mg PO DAILY 07/29/16 Nifedipine ER [Procardia XL -] 90 mg PO DAILY 07/29/16 Allopurinol [Zyloprim -] 100 mg PO DAILY 11/12/17 Folic Acid - 1 mg PO DAILY 11/12/17 Furosemide [Lasix] 20 mg PO DAILY 11/12/17 Lisinopril/Hydrochlorothiazide 1 each PO DAILY 11/12/17 [Lisinopril-Hctz 20-25 mg Tab] Nitroglycerin 0.4 mg SL PRN 11/12/17 Potassium Chloride [Klor-Con M20] 20 meq PO DAILY 11/12/17 Ergocalciferol [Vitamin D2] 50,000 unit PO Q7D@1000 11/13/17 Active Medications Acetaminophen (Tylenol -) 650 mg PO Q6H PRN PRN Reason: PAIN LEVEL 1-5 Last Admin: 11/13/17 23:58 Dose: 650 mg Aspirin (Asa -) 81 mg PO DAILY [facility] Last Admin: 11/13/17 09:15 Dose: 81 mg Atorvastatin Calcium (Lipitor -) 40 mg PO HS [facility] Last Admin: 11/13/17 21:25 Dose: 40 mg Folic Acid (Folic Acid -) 1 mg PO DAILY [facility] Last Admin: 11/13/17 09:15 Dose: 1 mg Heparin Sodium (Porcine) (Heparin -) 5,000 unit SQ TID [facility] Last Admin: 11/14/17 06:03 Dose: 5,000 unit Sodium Chloride (Normal Saline -) 1,000 mls @ 75 mls/hr IV ASDIR [facility] Last Admin: 11/13/17 14:29 Dose: 75 mls/hr Metoprolol Succinate (Toprol Xl -) 200 mg PO DAILY [facility] Last Admin: 11/13/17 09:14 Dose: 200 mg Nifedipine (Procardia Xl -) 90 mg PO DAILY [facility] Last Admin: 11/13/17 09:15 Dose: 90 mg Nitroglycerin (Nitrostat -) 0.4 mg SL PRN [facility] Non-Formulary Medication (Cholecalciferol (Vitamin D3) [Vitamin D3]) 50,000 unit PO Mo [facility] Potassium Chloride (K-Dur -) 20 meq PO DAILY [facility] Last Admin: 11/13/17 09:15 Dose: 20 meq Laboratory Results - last 24 hr 11/14/17 11/14/17 05:30 11:15 ESR 83 H Sodium 143 Potassium 3.7 Chloride 105 Carbon Dioxide 30 Anion Gap 8 BUN 24 H Creatinine 1.1 H Creat Clearance w eGFR 48.55 Random Glucose 85 Calcium 9.0 ASSESSMENT AND PLAN: 72yo F with PMH gout, HTN, dsylipidemia and [place] (1982) presented to the ER with L sided CP x 2days -Chest pain, left sided/reproducible, worse with arm movements, likley musculoskeletal -elevated D-dimer, PE ruled out -SONALI, suspect hypovolumia and continuation of lasix/ACEi/HCTZ (last cr in 2017 was normal) -Right foot pain -CAD s/p PCI 1982 -HTN -HLD Plan: ACS ruled out. Atypical features. Cardiology/Pulmonary input appreciated. V/Q scan low probability. Renal function improved. Continue to hold lasix/ACEi/HCTZ. Continue SA/statin/metoprolol/nifedipine. KCL suppl, d/c based on K levels. Renal US noted. Will need renal follow up outpatient. Resume allopurinol renal dosing. right foot xray. PT eval noted, plan for home VNS/PT. DVTPPx with heparin d/c later today pending above w/u with home VNS and PT. Plan discussed with patient in detail, all questions answered.Discussed with social work.
[2017-11-14] MEDS: ASPIRIN 81 MG CHEWABLE TABLETS PO SCH (09:29)
[2017-11-14] MEDS: POTASSIUM CHLORIDE TABS 20 MEQ TABLET.ER (FP) PO SCH (09:30)
[2017-11-14] MEDS: FOLIC ACID 1 MG TABLET (FP) PO SCH (09:30)
[2017-11-14] MEDS: NIFEdipine E.R. 90 MG TABLET (FP) PO SCH (09:30)
[2017-11-14] MEDS: ACETAMINOPHEN 325 MG TABLET (FP) PO PRN (09:33)
--- NOTE | 2017-11-14 10:34 | PN ---
Progress Note (short form) - Note Progress Note: Chief Complaint: Events noted, notes reviewed, denies any chest pain or dyspnea , complaining of toe pain History of Present Illness: Seen and examined on telemetry. Events noted, notes reviewed, denies any chest pain or dyspnea, complaining of toe pain Ant [place] dated 07/2016: revealed no ischemia with LVEF 76% Echocardiography dated 07/29/2016: revealed normal LV size and function, mild TR , trace-mild MR Medications: Current Medications Acetaminophen (Tylenol -) 650 mg PO Q6H PRN PRN Reason: PAIN LEVEL 1-5 Last Admin: 11/14/17 09:33 Dose: 650 mg Aspirin (Asa -) 81 mg PO DAILY [facility] Last Admin: 11/14/17 09:29 Dose: 81 mg Atorvastatin Calcium (Lipitor -) 40 mg PO HS [facility] Last Admin: 11/13/17 21:25 Dose: 40 mg Folic Acid (Folic Acid -) 1 mg PO DAILY [facility] Last Admin: 11/14/17 09:30 Dose: 1 mg Heparin Sodium (Porcine) (Heparin -) 5,000 unit SQ TID [facility] Last Admin: 11/14/17 06:03 Dose: 5,000 unit Sodium Chloride (Normal Saline -) 1,000 mls @ 75 mls/hr IV ASDIR [facility] Last Admin: 11/13/17 14:29 Dose: 75 mls/hr Metoprolol Succinate (Toprol Xl -) 200 mg PO DAILY [facility] Last Admin: 11/14/17 09:30 Dose: 200 mg Nifedipine (Procardia Xl -) 90 mg PO DAILY [facility] Last Admin: 11/14/17 09:30 Dose: 90 mg Nitroglycerin (Nitrostat -) 0.4 mg SL PRN [facility] Non-Formulary Medication (Cholecalciferol (Vitamin D3) [Vitamin D3]) 50,000 unit PO Mo [facility] Potassium Chloride (K-Dur -) 20 meq PO DAILY [facility] Last Admin: 11/14/17 09:30 Dose: 20 meq Review of Systems - Review of Systems Constitutional: denies: Chills or Fever Cardiovascular: As noted above Gastrointestinal: denies: Nausea, Vomiting, Diarrhea, Constipation or Abdominal Pain Genitourinary: No symptoms reported Neurological: No symptoms reported Vital Signs: Last Vital Signs Temp Pulse Resp BP Pulse Ox 98 F 68 18 146/72 96 11/14/17 09:00 11/14/17 09:00 11/14/17 09:00 11/14/17 09:00 11/14/17 07:00 Intake & Output 11/11/17 11/12/17 11/13/17 11/14/17 23:59 23:59 23:59 23:59 Intake Total 340 1350 1080 Balance 340 1350 1080 Weight 212 lb Neck: Supple Positive JVD No Bruit Respiratory: Clear to A&P Cardiovascular: S1 S2 Regularly Rate and Rhythm Grade 2/6 CAROLE Gastrointestinal: Soft Benign Normal Bowel Sounds Ext: Negative Edema Labs: CBC, BMP 11/13/17 06:00 11/14/17 05:30 Hepatic Panel Total Bilirubin 0.3 mg/dL (0.2-1.0) 11/13/17 06:00 AST 12 U/L (15-37) L 11/13/17 06:00 ALT 13 U/L (12-78) 11/13/17 06:00 Alkaline Phosphatase 149 U/L (45-117) H D 11/13/17 06:00 Albumin 3.5 g/dl (3.4-5.0) 11/13/17 06:00 Hepatic Panel Total Bilirubin 0.3 mg/dL (0.2-1.0) 11/13/17 06:00 AST 12 U/L (15-37) L 11/13/17 06:00 ALT 13 U/L (12-78) 11/13/17 06:00 Alkaline Phosphatase 149 U/L (45-117) H D 11/13/17 06:00 Albumin 3.5 g/dl (3.4-5.0) 11/13/17 06:00 Assessment/Plan ASSESSMENT: 1. Atypical chest pain syndrome, probably musculoskeletal in origin 2. CAD post RI/PTCA angina pectoris 3. Probable diastolic LV dysfunction with clinical class 0 NYHA classification LV failure 4. HTN/HCVD 5. Hyperlipidemia 6. Acute on CKD PLAN: 1. Continue Toprol XL 2. Continue Procardia XL 3. Resume ACEI and diuretics once renal function at baseline 4. Continue ASA 81 5. Continue Lipitor 6. Can be transferred to floor care ferom the cardiovascular point of view Outpatient F/U with Dr. Marvin Brennan M.D.
--- NOTE | 2017-11-14 10:45 | PN ---
Progress Note, Physician History of Present Illness: PULMONARY ALERT,C/O CP WITH MOVEMENT,-SOB. V/Q LOW PROBABILITY FOR PE - Current Medication List Current Medications: Active Medications Acetaminophen (Tylenol -) 650 mg PO Q6H PRN PRN Reason: PAIN LEVEL 1-5 Last Admin: 11/14/17 09:33 Dose: 650 mg Aspirin (Asa -) 81 mg PO DAILY [facility] Last Admin: 11/14/17 09:29 Dose: 81 mg Atorvastatin Calcium (Lipitor -) 40 mg PO HS [facility] Last Admin: 11/13/17 21:25 Dose: 40 mg Folic Acid (Folic Acid -) 1 mg PO DAILY [facility] Last Admin: 11/14/17 09:30 Dose: 1 mg Heparin Sodium (Porcine) (Heparin -) 5,000 unit SQ TID [facility] Last Admin: 11/14/17 06:03 Dose: 5,000 unit Sodium Chloride (Normal Saline -) 1,000 mls @ 75 mls/hr IV ASDIR [facility] Last Admin: 11/13/17 14:29 Dose: 75 mls/hr Metoprolol Succinate (Toprol Xl -) 200 mg PO DAILY [facility] Last Admin: 11/14/17 09:30 Dose: 200 mg Nifedipine (Procardia Xl -) 90 mg PO DAILY [facility] Last Admin: 11/14/17 09:30 Dose: 90 mg Nitroglycerin (Nitrostat -) 0.4 mg SL PRN [facility] Non-Formulary Medication (Cholecalciferol (Vitamin D3) [Vitamin D3]) 50,000 unit PO Mo [facility] Potassium Chloride (K-Dur -) 20 meq PO DAILY [facility] Last Admin: 11/14/17 09:30 Dose: 20 meq - Objective Vital Signs: Vital Signs Temperature 98 F 11/14/17 09:00 Pulse Rate 68 11/14/17 09:00 Respiratory Rate 18 11/14/17 09:00 Blood Pressure 146/72 11/14/17 09:00 O2 Sat by Pulse Oximetry (%) 96 11/14/17 07:00 Constitutional: Yes: Well Nourished, Calm Eyes: Yes: WNL HENT: Yes: WNL Neck: Yes: WNL Cardiovascular: Yes: Regular Rate and Rhythm, S1, S2 Respiratory: Yes: CTA Bilaterally Gastrointestinal: Yes: Normal Bowel Sounds, Soft Extremities: Yes: WNL Edema: No Labs: CBC, BMP 11/13/17 06:00 11/14/17 05:30 INR, PTT INR 1.11 (0.83-1.09) H 11/12/17 12:03 Problem List - Problems (1) SONALI (acute kidney injury) Code(s): N17.9 - ACUTE KIDNEY FAILURE, UNSPECIFIED (2) Chest pain Code(s): R07.9 - CHEST PAIN, UNSPECIFIED (3) Elevated d-dimer Code(s): R79.89 - OTHER SPECIFIED ABNORMAL FINDINGS OF BLOOD CHEMISTRY (4) Atypical chest pain Code(s): R07.89 - OTHER CHEST PAIN (5) Coronary artery disease Code(s): I25.10 - ATHSCL HEART DISEASE OF [place] CORONARY ARTERY W/O ANG PCTRS Qualifiers: Qualified Code(s): I25.10 - Atherosclerotic heart disease of [place] coronary artery without angina pectoris (6) HLD (hyperlipidemia) Code(s): E78.5 - HYPERLIPIDEMIA, UNSPECIFIED Qualifiers: Qualified Code(s): E78.00 - Pure hypercholesterolemia, unspecified; E78.0 - Pure hypercholesterolemia (7) HTN (hypertension) Code(s): I10 - ESSENTIAL (PRIMARY) HYPERTENSION Assessment/Plan IMP CHEST PAIN ,R/O MUSCULOSKELETAL,INFLAMMATORY,? CARDIAC ASHD S/P [place] ACUTE ON CKD GOUT HTN HLD PLAN ESR ANALGESICS MONITOR LYTES FLUIDS DR SMITH Problem List - Problems (1) SONALI (acute kidney injury) Code(s): N17.9 - ACUTE KIDNEY FAILURE, UNSPECIFIED (2) Chest pain Code(s): R07.9 - CHEST PAIN, UNSPECIFIED (3) Elevated d-dimer Code(s): R79.89 - OTHER SPECIFIED ABNORMAL FINDINGS OF BLOOD CHEMISTRY (4) Atypical chest pain Code(s): R07.89 - OTHER CHEST PAIN (5) Coronary artery disease Code(s): I25.10 - ATHSCL HEART DISEASE OF [place] CORONARY ARTERY W/O ANG PCTRS (6) HLD (hyperlipidemia) Code(s): E78.5 - HYPERLIPIDEMIA, UNSPECIFIED (7) HTN (hypertension) Code(s): I10 - ESSENTIAL (PRIMARY) HYPERTENSION
[2017-11-14] MEDS ORDERED: ALLOPURINOL 100 MG TABLET (FP) PO SCH (12:45)
[2017-11-14] MEDS ORDERED: COLCHICINE 0.6 MG TABLET (FP) PO ONE (14:40)
[2017-11-14 14:45] VITALS: BP 137/66; PULSE 71; TEMP 98.8
[2017-11-14] MEDS ORDERED: predniSONE 10 MG TABLET (UD) PO ONE (14:46)
--- NOTE | 2017-11-14 18:42 | PN ---
Physical Exam: SUBJECTIVE: Patient seen and examined at bedside. Patient has no new complaints. She still has the reproducible chest pain, worsened with left arm movement. Patient also c/o right foot pain. OBJECTIVE: Vital Signs Period Temp Pulse Resp BP Sys/Gilbert Pulse Ox Last 24 Hr 98 F-99.3 F 66-73 18-20 129-146/62-80 96-96 GENERAL: The patient is awake, alert, and fully oriented, in no acute distress. HEAD: Normal with no signs of trauma. EYES: PERRL, extraocular movements intact, sclera anicteric, conjunctiva clear. ENT: Ears normal, nares patent, oropharynx clear without exudates, moist mucous membranes. NECK: Trachea midline, full range of motion, supple. LUNGS: Breath sounds equal, clear to auscultation bilaterally, no wheezes, no crackles, no accessory muscle use. HEART: Regular rate and rhythm, S1, S2 without murmur, rub or gallop. ABDOMEN: Soft, nontender, nondistended, normoactive bowel sounds, no guarding, no rebound, no hepatosplenomegaly, no masses. EXTREMITIES: 2+ pulses, warm, well-perfused, no edema. NEUROLOGICAL: Cranial nerves II through XII grossly intact. Normal speech, gait not observed. PSYCH: Normal mood, normal affect. SKIN: Warm, dry, normal turgor, no rashes or lesions noted Laboratory Results - last 24 hr 11/14/17 11/14/17 05:30 11:15 ESR 83 H Sodium 143 Potassium 3.7 Chloride 105 Carbon Dioxide 30 Anion Gap 8 BUN 24 H Creatinine 1.1 H Creat Clearance w eGFR 48.55 Random Glucose 85 Calcium 9.0 ASSESSMENT/PLAN: Patient is a 72 year old female with past medical history of MA/CAD, HTN, HLD, SONALI and gout presented with left sided chest pressure/tightness for the past 2 days. #CP, r/o ACS, r/o PE -reproducible, related to movement -d-dimer positive 920 -No CTA due to elevated Electronic Equipment Repairer -No ECG changes -No leg swelling. DVT negative -Tele monitoring -Trop neg x 2 -Known to [facility]. Follows with Dr. Ramirez -V/Q scan unremarkable -Pulm consulted #Gout -? gout flare -R 1st MCP pain -no swelling, redness -Tylenol #SONALI on ? CKD -Electronic Equipment Repairer 2.7 -> 1.8 -Unknown baseline -resolving -renal u/s showing a cyst and echogenic kidneys -Hold lasix, allopurinol #HTN -controlled with home Metoprolol #Hx ACS -had cath in 1982 -follows with Dr. Marvin Ramirez -had stress test in 2016 with good LV function and no ischemia -last seen in [facility] in Mar 2017 -c/w ASA, nitro prn #HLD -crestor #FEN -NS -lytes wnl -Na control diet #PPx -Hep SubQ #Dispo -Tele -for discharge tomorrow
--- NOTE | 2017-11-14 18:54 | DS ---
Physical Exam: SUBJECTIVE: Patient seen and examined at bedside this morning. Patient has no new complaints. She still has the reproducible chest pain, worsened with left arm movement. Patient also c/o right foot pain. OBJECTIVE: Vital Signs Period Temp Pulse Resp BP Sys/Gilbert Pulse Ox Last 24 Hr 98 F-99.3 F 66-73 18-20 129-146/62-80 96-96 PHYSICAL EXAM GENERAL: The patient is awake, alert, and fully oriented, in no acute distress. HEAD: Normal with no signs of trauma. EYES: PERRLA, EOMI, sclera anicteric, conjunctiva clear. ENT: Ears normal, nares patent, oropharynx clear without exudates, moist mucous membranes. NECK: Trachea midline, full range of motion, supple. LUNGS: Breath sounds equal, clear to auscultation bilaterally. HEART: Regular rate and rhythm, S1, S2 without murmur, rub or gallop. ABDOMEN: Soft, nontender, nondistended, normoactive bowel sounds. EXTREMITIES: 2+ pulses, warm, well-perfused, no edema. NEUROLOGICAL: Cranial nerves II through XII grossly intact. Normal speech, gait not observed. PSYCH: Normal mood, normal affect. SKIN: Warm, dry, normal turgor, no rashes or lesions noted. LABS Laboratory Results - last 24 hr 11/14/17 11/14/17 05:30 11:15 ESR 83 H Sodium 143 Potassium 3.7 Chloride 105 Carbon Dioxide 30 Anion Gap 8 BUN 24 H Creatinine 1.1 H Creat Clearance w eGFR 48.55 Random Glucose 85 Calcium 9.0 Imaging: CXR: Since 11/12/17 again noted is the mamillation of the right hemidiaphragm with prominent mediastinum and clear lung jarrett. Right foot xray: 3 views of the right foot reveal swelling, loss of bone density , bunion formation by the first MTP joint and some questionable erosions by the distal end of the first metatarsal which could represent early gout. There are flexed toes with arthritic findings. An acute fracture is not seen. Lung scan VQ: Low probability for pulmonary embolism. Overall worse ventilation than perfusion with small segmental ventilation defects with less prominent perfusion defects likely due to parenchymal lung disease. Renal US: Abnormal sonography with increased echogenicity renal parenchymal cortex suspicious for developing medical renal parenchymal disease, the possibility of acute renal failure is not excluded in this setting, no hydronephrosis identified, clinical correlation. HOSPITAL COURSE: Date of Admission:11/12/17 Date of Discharge: 11/14/17 Patient is a 72 year old female with past medical history of WA/CAD, HTN, HLD, SONALI and gout presented with left sided chest pressure/tightness for the past 2 days. She has had an WA in the past that felt more like heartburn, much different from the discomfort she's experiencing today. The discomfort came on suddenly when she was getting up. This is the first episode she's had of sharp pain that cam on with movement of her torso or left arm. It is constant, 5/10, does no radiate anywhere worsens with deep breaths and movements. She took one baby aspirin at home with no relief and then decided to visit the ED. She was given an additional baby aspirin and Tylenol in the ED which have provided minimal relief. Denies any recent excessive NSAID use, travel, medication changes. Denies numbness, tingling, weakness, palpitations, SOB, fever, chills, nausea, vomiting, diarrhea, constipation. Patient was admitted for chest pain, to rule out ACS and PE. She was started on heparin ggt at the ED which was discontinued due to low probability. Cardiology and pulmonology consulted. Troponin x3 was negative and EKG showed normal sinus rhythm. VQ scan revealed low probability of pulmonary embolism. Chest pain probably musculoskeletal. Patient also complained of right foot pain. Xray of right foot done which revealed early gout. Patient started on Prednisone 30mg, and will continue to taper off dose at home and to continue Allopurinol. She was also noted to have SONALI, with Creatinine on admission was 2.7. Lasix was held, IVF started, renal US done which showed a cyst and echogenic kidneys. Renal function on 3rd HD showed improvement and decision to discharge patient with instructions to follow -up with erp consultant given. Minutes to complete discharge: 45 Discharge Summary Reason For Visit: CHEST PAIN Condition: Improved - Instructions Diet, Activity, Other Instructions: You were in the hospital because of left-sided chest pressure/tightness for the past 2 days. You probably have musculoskeletal pain. You also complained of right foot pain. Xray of foot was done and the pain is most likely due to gout. You already received your prednisone dose for today, start below prednisone taper from tomorrow 11/15. Please continue taking Prednisone as instructed below for gout: -Take 30 mg (3 tablets) for 1 day tomorrow (mon) -Take 20 mg (2 tablets) for 2 days (, Mon) -Then take 10 mg for 2 days (Sat, Sun) If your still have foot or shoulder pain at the end of the treatment, please discuss with your doctor for additional medications and treatment. Do not take following medications on discharge: Lisinopril/HCTZ combination Furosemide (Lasix) Continue other medications as before. Advise daily weights and notify your doctor right away if weight gain > 3 lbs in 2 days. You will need close monitoring of your kidneys with your doctor. You are advised following blood work in 5-7 days with your doctor: BMP (Basic Metabolic Panel) Also discuss with your doctor for outpatient kidney doctor referral. It is very important that you see your regular medical doctor in 1 week of discharge to monitor your kidneys, gout and discuss resumptions of your lisinopril/HCTZ and lasix. Take rest of your medications as before. You are arranged for home visiting nurses and home physical therapy. Referrals: Malachi Lancaster MD [Primary Care Provider] - Rick De Leon MD [Staff Physician] - Sanya Garcia MD [Staff Physician] - Disposition: VNS/HOME HEALTH CARE - Home Medications Comprehensive Discharge Medication List: Ambulatory Orders Aspirin [ASA -] 81 mg PO DAILY 07/29/16 Atorvastatin Ca [Lipitor] 40 mg PO HS 07/29/16 Metoprolol Succinate [Toprol XL -] 200 mg PO DAILY 07/29/16 Nifedipine ER [Procardia XL -] 90 mg PO DAILY 07/29/16 Allopurinol [Zyloprim -] 100 mg PO DAILY 11/12/17 Folic Acid - 1 mg PO DAILY 11/12/17 Nitroglycerin 0.4 mg SL PRN 11/12/17 Ergocalciferol [Vitamin D2] 50,000 unit PO Q7D@1000 11/13/17 Potassium Chloride 20 meq PO DAILY 11/14/17 predniSONE [Deltasone -] See Taper PO ASDIR 5 Days #9 tab 11/14/17 This patient is new to me today: Yes Date on this admission: 11/14/17 Emergency Visit: Yes ED Registration Date: 11/12/17 Care time: The patient presented to the Emergency Department on the above date and was hospitalized for further evaluation of their emergent condition. Critical Care patient: No - Discharge Referral Referred to [facility] No
== END 2017-11-14 17:15 | disposition home health service (06) ==
LOC: JER 11:15 → JERBED 14:08 → INTOOBSV 14:08 → UNDOADMOB 14:08 → JERBED 15:06 → J4W 18:40
PROVIDERS: ADMIT Internal Medicine; ATTEND Hospitalist
PROC: 3E033GC Introduction of Other Therapeutic Substance into Peripheral Vein, Percutaneous Approach (ICD-10-PCS; principal; 2017-11-12)
PROC: 3E033NZ Introduction of Analgesics, Hypnotics, Sedatives into Peripheral Vein, Percutaneous Approach (ICD-10-PCS; 2017-11-12)
PROC: 3E0337Z Introduction of Electrolytic and Water Balance Substance into Peripheral Vein, Percutaneous Approach (ICD-10-PCS; 2017-11-12)
PROC: 3E013GC Introduction of Other Therapeutic Substance into Subcutaneous Tissue, Percutaneous Approach (ICD-10-PCS; 2017-11-12)
DX: R07.89 Other chest pain (principal); N17.9 Acute kidney failure, unspecified; R79.89 Other specified abnormal findings of blood chemistry; I12.9 Hypertensive chronic kidney disease with stage 1 through stage 4 chronic kidney disease, or unspecified chronic kidney disease; I11.9 Hypertensive heart disease without heart failure; N18.9 Chronic kidney disease, unspecified; E78.5 Hyperlipidemia, unspecified; I25.10 Atherosclerotic heart disease of native coronary artery without angina pectoris; I25.2 Old myocardial infarction; M10.9 Gout, unspecified; E66.9 Obesity, unspecified; Z68.34 Body mass index [BMI] 34.0-34.9, adult; Z79.82 Long term (current) use of aspirin; Z98.61 Coronary angioplasty status
CPT/HCPCS: 36415; 71045-TC-FY; 73630-TC-RT-FY; 76775-TC; 78582-TC; 80048; 80053; 81003; 81015; 82436; 82550; 83735; 84100; 84133; 84300; 84484; 85025; 85379; 85610; 85651; 85730; 93005; 93010; 93970-TC; 96361; 96372; 96374; 96375; 96376; 97116-GP; 97161-GP; 99285-25; A9539; A9540; G0378; J1644; J7030